=== PATIENT | male | born 1960 | race Caucasian/White ===

== ENCOUNTER 2025-01-01 21:34 | Emergency (ER) | payer MEDICARE, SELFPAY ==
--- OUTSIDE RECORDS SUMMARY | 2024-12-27 09:19 | XMS_ITS | Encounter Summary ---
Author Organization [employer] [facility] Address [address] [place] [address] Care Team Providers Care Sizing Sprayer Name Role Phone Dereck Lu MD Primary Care Provider [phone] Reason for Visit * Auth/Cert (Routine) Specialty Diagnoses / Procedures Referred By Chirag t Referred To Contact Perioperative Diagnoses Rotator cuff tear arthropathy of right shoulder Procedures MN ARTHROPLASTY GLENOHUMERAL JOINT TOTAL SHOULDER MN ARTHROPLASTY GLENOHUMRL JT HEMIARTHROPLASTY SHOULDER ARTHROPLASTY TOTAL REPLACEMENT Daniel Bryant III, MD [address] [place] [address] Phone: tel: fax: [facility] Operating Room [address] [place] [address] Phone: tel: fax: Referral ID Status Reason Start Date Expiration Date Visits Re quested Visits Authorized [id number] 1 1 Encounter Details Date Type Department Care Team (Latest Contact Info) Description 12/27/2024 9:19 AM CDT - 12/29/2024 10:32 AM CDT Hospital Encounter [facility] Inpatient [address] 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 Gender Identity Male 01/31/2024 2:24 PM CDT Sexual Orientation Straight 01/31/2024 2: 24 PM CDT documented as of this encounter Last Filed Vital Signs Vital Sign Reading Time Taken Comments Blood Pressure 116/61 12/29/2024 10:23 AM CDT Pulse 77 12/29/2024 10:23 AM CDT Temperature 36.8 C (98.2 F) 12/29/2024 10:23 AM CDT Respiratory Rate 18 12/29/2024 10:23 AM CDT Oxygen Saturation 94% 12/29/2024 10:23 AM CDT Inhaled Oxygen Concentration - - Weight 75.3 kg (166 lb) 12/27/2024 9:29 AM CDT Height 172.7 cm (5' 8 ) 12/27/2024 9:29 AM CDT Body Mass Index 25.24 12/27/2024 9:29 AM CDT documented in this encounter Discharge Summaries * Frederick Allison, MYLES - 12/29/2024 7:15 AM CDT Images from the original note were not included. ORTHOPEDIC DISCHARGE SUMMARY DATE: 12/29/2024 PATIENT: Nicholas Granados/64 y.o./male : 1960 ADMISSION DATE: 12/27/2024 DISCHARGE DATE: PHYSICIAN: Daniel Bryant MD PRE-OP DX: Right shoulder cuff tear arthropathy, bilateral amputee lower extremities FINAL DX: Same as preoperative diagnosis PROCEDURE PERFORMED: Procedure(s) and Anesthesia Type: * SHOULDER ARTHROPLASTY TOTAL REPLACEMENT - General by Dr. Bryant [facility] COU[facility]SE: The patient tolerated the above procedure well without complications and was admitted to [facility] in [place], [place]. SCD's and ASA were used for DVT prophylaxis. The post-operative hospital course was uncomplicated. The wound dressing remained clean, dry, and intact. Patient was neurovascularly intact in the affected extremity. By POD 2, the patient was in stable condition, vital signs were stable, and pain was controlled. The patient was discharged to in assisted living facility dependent on nursing care. DISCHARGE INSTRUCTIONS: SURGICAL INCISION: You have absorbable sutures closing the surgical wound. Keep incision covered with your surgical dressing until your follow up visit. There are no harvey or sutures that need to be removed. When we remove the dressing at your post operative visit, you will see white tape (Steri-Strips) over your incision. These Steri-Strips will fall off on their own between 2 weeks to 6 weeksafter surgery. -You may shower using the shower sling after 3 days with your post operative dressing still intact as it is waterproof, until that time the patient should utilize sponge baths. Do not allow water to hit the shoulder directly and avoid washing the shoulder. Let us know if the dressing leaks, traps water, or you notice any drainage trapped under the dressing. We recommend that you purchase a cloth simple sling at a drug store or supermarket and take your arm out of the shoulder immobilizer while showering and place it into the simple cloth sling in the shower. The simple cloth sling can then get wet and air dry after the shower. Please go right back into your DRY shoulder immobilizer after the shower. Please avoid submerging the surgical incision in standing bodies of water for a period of at least 6 weeks. This entails no baths, hot tubs, or swimming pools. You must wear the shoulder immobilizer / for 6 weeks. You may come out of the shoulder immobilizer for getting dressed and doing therapy exercises. You should sleep in your shoulder immobilizer. Unless otherwise instructed, youshould remain in the shoulder immobilizer until discussed with Dr. Bryant' Team. You may notice some swelling and bruising on their arm and this may extend to fingers. This is common and will go awayafter several weeks. After dismissal, the incision should be monitored at least once daily for signs/symptoms of possible wound infection. These include; increased redness, warmth, pain, tenderness, swelling, or drainagefrom the incision and temperatures greater than 102 F. If any of these occur, the patient should imm ediately contact Dr. Bryant' office, a local emergency room, or his/her local primary care physician. TRAVEL: Dr. Bryant recommends no driving until 6 weeks after surgery. NARCOTIC PAIN MEDICATIONS: The patient may require narcotic pain medication (hydroxycodone or oxycodone) for several days after dismissal from the hospital. These medications may cause symptoms such as drowsiness, confusion, nausea, and constipation. The patient is encouraged to not use these medications any longer than necessary, as they may be addictive if used over an extended time period. While taking these medications we recommend a stool softener (such as Colace) to help prevent constipation. In addition, the patient is advised not to operate any motorized vehicles while taking narcoticpain medications. ACTIVITY RESTRICTIONS: You should follow instructions as directed in the hospital. Continue passiverange of motion exercises for six weeks. You may remove and discontinue using the sling at 6 weeks.You can begin activities of daily living at 6 weeks, brush your teeth, personal hygiene etc. You may not lift more than 10 pounds with shoulder for the first 6 months after surgery. ANTIBIOTICS: When possible, it is recommended to avoid elective dental procedures, such as orthognathic surgery, orthodontics, or implant placement for the first six months following total joint surgery. This recommendation also includes endoscopy and colonoscopy procedures. Antibiotic prophylaxis is not recommended after one year following Total Shoulder surgery. Dental Antibiotic Options: 1. Cephalexin or Amoxicillin- 2 grams orally 1 hour prior to the procedure. 2. If allergic to PCN / Cephalosporins, Clindamycin- 600 mg orally, Azithromycin or Clarithromycin-500 mg orally. GENERAL QUESTIONS: If the patient has any general questions or concerns please call during regular weekday working hours (8 am to 5 pm). For emergencies at night or on weekends the patient may contact the anytime number at . FOLLOW-UP: An appointment will be made for you in 2 weeks after the surgery with Dr. Bryant' Team in clinic. If you have questions regarding this appointment or have not received an appointment, please contact Dr. Bryant' office. Please be aware that medications, including narcotics, will not be refilled on weekends or after 5 pm on week. If you need a medication refill, please contact our office during normal business hours Thursday through Thursday. DISCHARGE MEDICATIONS: Medication List START taking these medications oxyCODONE 5 mg tablet Commonly known as: ROXICODONE Take 1 Tablet (5 mg) by mouth every 4 hours as needed for Pain or Pain, Break- Through (For break through pain). Max Daily Amount: 30 mg Signed by: Dr. Reba Bryant Quantity: 20 Tablet Refills: 0 sennosides-docusate sodium 8.6-50 mg tablet Commonly known as: SENNA-S Take 1 Tablet by mouth 2 times daily. Take only when taking narcotics Signed by: Dr. Reba Bryant Quantity: 30 Tablet Refills: 2 CHANGE how you take these medications * aspirin 81 mg Tablet, Delayed Release (E.C.) Commonly known as: ECOTRIN EC What changed: Another medication with the same name was added. Make sure you understand how and when to take each. Take 1 Tablet (81 mg) by mouth daily. Signed by: Dr. Sabrina Greco Quantity: 30 Tablet Refills: 3 * aspirin 81 mg Tablet, Delayed Release (E.C.) Commonly known as: Aspirin EC What changed: You were already taking a medication with the same name, and this prescription was added. Make sure you understand how and when to take each. Take 1 Tablet (81 mg) by mouth daily for 28 days. Take for 28 days for blood clot prevention. Signed by: Dr. Reba Bryant Quantity: 28 Tablet Refills: 0 morphine 30 mg Controlled Release tablet Commonly known as: MS CONTIN What changed: Another medication with the same name was removed. Continue taking this medication, and follow the directions you see here. Take 30 mg by mouth daily. Refills: 0 * naloxone 4 mg/spray Harbert, Non-Aerosol Commonly known as: NARCAN What changed: Another medication with the same name was added. Make sure you understand how and when to take each. Administer 1 Harbert (4 mg) in one nostril (alternate nostril with each dose) one time as needed for Respiration (slowed with opioid use). Push plunger to administer. Call 911. May repeat dose, every 2-3 minutes, if the person does not wake up or breathing is not improved. Signed by: Nurse Practitioner Cecilia Carranza Quantity: 1 Each Refills: 1 * naloxone 4 mg/spray Harbert, Non-Aerosol Commonly known as: NARCAN What changed: You were already taking a medication with the same name, and this prescription was added. Make sure you understand how and when to take each. FOR EMERGENCY USE ONLY: Call 911. Administer 1 actuation in 1 nostril. Repeat every 2 to 3 minutes if no or minimal response Signed by: Dr. Reba Bryant Quantity: 2 Each Refills: 0 Indications of Use: Call 911. Administer 1 actuation in 1 nostril. Repeat every 2 to 3 minutes if no or minimal response * !!Potential duplicate medications found. Review medication list carefully. CONTINUE taking these medications atorvastatin 40 mg tablet Commonly known as: LIPITOR Take 1 Tablet (40 mg) by mouth daily at bedtime. Signed by: Nurse Practitioner Colleen Otto Quantity: 100 Tablet Refills: 3 cetirizine 10 mg tablet Commonly known as: ZyrTEC Take 1 Tablet (10 mg) by mouth daily at bedtime. Signed by: Dr. Arnold Lu Quantity: 90 Tablet Refills: 1 EPINEPHrine 0.3 mg/0.3 mL Auto-Injector Commonly known as: EPIPEN Inject 0.3 mL (0.3 mg) by intramuscular injection 1 time daily as needed for Anaphylaxis. Signed by: Dr. Arnold Lu Quantity: 1 Each Refills: 1 FLUoxetine 20 mg capsule Commonly known as: PROzac Take 1 Capsule (20 mg) by mouth daily. Signed by: Nurse Practitioner Colleen Otto Quantity: 90 Capsule Refills: 1 nitroglycerin 0.4 mg Tablet, Sublingual Commonly known as: NITROSTAT Place 1 Tablet (0.4 mg) under tongue every 5 minutes as needed for Chest Pain. Signed by: Nurse Practitioner Kaylin Gregg Quantity: 25 Tablet Refills: 3 STOP taking these medications HYDROcodone-acetaminophen 5-325 mg tablet Commonly known as: NORCO hydrOXYzine HCL 50 mg tablet Commonly known as: ATARAX morphine 30 mg Extended Release 24 hour capsule Commonly known as: AVINza You also have another medication with the same name that you need to continue taking as instructed. Where to Get Your Medications These medications were sent to [address] [address] Hours: Thursday - Thursday: 8:30 am - 5 pm (Closed for Lunch 1:30 pm - 2 pm) aspirin 81 mg Tablet, Delayed Release (E.C.) naloxone 4 mg/spray Harbert, Non-Aerosol oxyCODONE 5 mg tablet sennosides-docusate sodium 8.6-50 mg tablet Cosigned by Daniel Bryant III, MD at 12/29/2024 7:53 AM CDT documented in this encounter Discharge Instructions * Discharge Instructions* Frederick Allison FNP - 12/26/2024 4:02 PM CDT SURGICAL INCISION: You have absorbable sutures closing the surgical wound. There is a clear dressing over the incision that will stay on for approximately 2 to 6 weeks. Do not peel off this clear dressing. If the edges of the dressing started to peel up you can trim them with some scissors, but leave the rest of the dressing in place. There are no harvey or sutures that need to be removed. This dressing will come off on its own over time approximately 2 to 6 weeks. -You may shower using the shower sling after 3 days with your post operative dressing still intact as it is waterproof, until that time the patient should utilize sponge baths. Do not allow water to hit the shoulder directly and avoid washing the shoulder. Let us know if the dressing leaks, traps water, or you notice any drainage trapped under the dressing. We recommend that you purchase a cloth simple sling at a drug store or supermarket and take your arm out of the shoulder immobilizer while showering and place it into the simple cloth sling in the shower. The simple cloth sling can then get wet and air dry after the shower. Please go right back into your DRY shoulder immobilizer after the shower. Please avoid submerging the surgical incision in standing bodies of water for a period of at least 6 weeks. This entails no baths, hot tubs, or swimming pools. You must wear the shoulder immobilizer 15/12 for 6 weeks. You may come out of the shoulder immobilizer for getting dressed and doing therapy exercises. You should sleep in your shoulder immobilizer. Unless otherwise instructed, youshould remain in the shoulder immobilizer until discussed with Dr. Bryant' Team. You may notice some swelling and bruising on their arm and this may extend to fingers. This is common and will go awayafter several weeks. After dismissal, the incision should be monitored at least once daily for signs/symptoms of possible wound infection. These include; increased redness, warmth, pain, tenderness, swelling, or drainagefrom the incision and temperatures greater than 102 F. If any of these occur, the patient should imm ediately contact Dr. Bryant' office, a local emergency room, or his/her local primary care physician. TRAVEL: Dr. Bryant recommends no driving until 6 weeks after surgery. NARCOTIC PAIN MEDICATIONS: The patient may require narcotic pain medication (hydroxycodone or oxycodone) for several days after dismissal from the hospital. These medications may cause symptoms such as drowsiness, confusion, nausea, and constipation. The patient is encouraged to not use these medications any longer than necessary, as they may be addictive if used over an extended time period. While taking these medications we recommend a stool softener (such as Colace) to help prevent constipation. In addition, the patient is advised not to operate any motorized vehicles while taking narcoticpain medications. ACTIVITY RESTRICTIONS: You should follow instructions as directed in the hospital. Continue passiverange of motion exercises for six weeks. You may remove and discontinue using the sling at 6 weeks.You can begin activities of daily living at 6 weeks, brush your teeth, personal hygiene etc. You may not lift more than 10 pounds with shoulder for the first 6 months after surgery. ANTIBIOTICS: When possible, it is recommended to avoid elective dental procedures, such as orthognathic surgery, orthodontics, or implant placement for the first six months following total joint surgery. This recommendation also includes endoscopy and colonoscopy procedures. Antibiotic prophylaxis is not recommended after one year following Total Shoulder surgery. Dental Antibiotic Options: 1. Cephalexin or Amoxicillin- 2 grams orally 1 hour prior to the procedure. 2. If allergic to PCN / Cephalosporins, Clindamycin- 600 mg orally, Azithromycin or Clarithromycin-500 mg orally. GENERAL QUESTIONS: If the patient has any general questions or concerns please call during regular weekday working hours (8 am to 5 pm). For emergencies at night or on weekends the patient may contact the anytime number at . FOLLOW-UP: An appointment will be made for you in 2 weeks after the surgery with Dr. Bryant' Team in clinic. If you have questions regarding this appointment or have not received an appointment, please contact Dr. Bryant' office. Please be aware that medications, including narcotics, will not be refilled on weekends or after 5 pm on weekdays. If you need a medication refill, please contact our office during normal business hours Thursday through Thursday. * Attachments The following attachments cannot be sent through Care Everywhere. * Oxycodone ([place]) * Senna ([place]) * Ondansetron ([place]) * Opioids: Safe Use ([place]) * How and When to Give Naloxone: Video ([place]) documented in this encounter Medications at Time of Discharge oxyCODONE-acetami nophen (Percocet) 5-325 mg tabletIndications :S/P shoulder replacement, right Take 1 Tablet by mouth every 4 hours as needed for Pain, Severe. Max Daily Amount: 6 Tablets 30 Tablet 12/29/2024 naloxone (NARCAN) 4 mg/spray Harbert, Non-AerosolIndica tions:Call 911. Administer 1 actuation in 1 nostril. Repeat every 2 to 3 minutes if no or minimal response Administer 1 Harbert (4 mg) in left nostril one time as needed for Other (See Comment) (FOR EMERGENCY USE ONLY: Call 911. Administer 1 actuation in 1 nostril. Repeat every 2 to 3 minutes if no or minimal response). FOR EMERGENCY USE ONLY: Call 911. Administer 1 actuation in 1 nostril. Repeat every 2 to 3 minutes if no or minimal response 1 Each 12/28/2024 sennosides-docusa te sodium (SENNA-S) 8.6-50 mg tablet Take 1 Tablet by mouth 2 times daily. Take only when taking narcotics 30 Tablet 2 12/28/2024 aspirin (Aspirin EC) 81 mg Tablet, Delayed Release (E.C.) Take 1 Tablet (81 mg) by mouth daily for 28 days. Take for 28 days for blood clot prevention. 28 Tablet 12/28/2024 01/26/20 25 ondansetron (ZOFRAN ODT) 4 mg Tablet, Rapid Dissolve Take 1 Tablet (4 mg) by mouth every 6 hours as needed for Nausea/Emesis. Dissolve tablet on top of tongue, then swallow with saliva. 15 Tablet 1 12/28/2024 morphine (MS CONTIN) 30 mg Controlled Release tablet Take 30 mg by mouth daily. 12/07/2024 cetirizine (ZyrTEC) 10 mg tabletIndications :Environmental allergies Take 1 Tablet (10 mg) by mouth daily at bedtime. 90 Tablet 1 12/12/2024 EPINEPHrine (EPIPEN) 0.3 mg/0.3 mL Auto-InjectorIndi cations:History of anaphylaxis Inject 0.3 mL (0.3 mg) by intramuscular injection 1 time daily as needed for Anaphylaxis. 1 Each 1 12/12/2024 naloxone (NARCAN) 4 mg/spray Harbert, Non-Aerosol Administer 1 Harbert (4 mg) in one nostril (alternate nostril with each dose) one time as needed for Respiration (slowed with opioid use). Push plunger to administer. Call 911. May repeat dose, every 2-3 minutes, if the person does not wake up or breathing is not improved. 1 Each 1 07/28/2024 FLUoxetine (PROzac) 20 mg capsule Take 1 Capsule (20 mg) by mouth daily. 90 Capsule 1 07/05/2024 atorvastatin (LIPITOR) 40 mg tabletIndications :Benign hypertension Take 1 Tablet (40 mg) by mouth daily at bedtime. 100 Tablet 3 07/05/2024 nitroglycerin (NITROSTAT) 0.4 mg Tablet, Sublingual Place 1 Tablet (0.4 mg) under tongue every 5 minutes as needed for Chest Pain. 25 Tablet 3 12/04/2021 aspirin (ECOTRIN EC) 81 mg Tablet, Delayed Release (E.C.) Take 1 Tablet (81 mg) by mouth daily. 30 Tablet 3 10/19/2021 documented as of this encounter Progress Notes * Frederick Allison, MYLES - 12/29/2024 7:17 AM CDT Subjective Pain 5/10. Denies chest pain, shortness of breath, fever, chills, nausea, vomiting. Voiding independently. Tolerating p.o. well. Patient doing well postoperatively from their Right Reverse Total Shoulder Arthroplasty. Objective VITAL SIGNS Vitals: 12/28/24 1650 12/28/24 1939 12/29/24 0029 12/29/24 0537 BP: (!) 157/86 (!) 184/85 (!) 158/74 (!) 150/76 BP Location: Left arm Left arm Left arm Left arm Patient Position (BP): Sitting Supine Supine Supine Pulse: 73 71 62 66 Resp: 18 18 18 18 Temp: 97.8 ??F (36.6 ??C) 97.5 ??F (36.4 ??C) 99.7 ??F (37.6 ??C) 98.1 ??F (36.7 ??C) TempSrc: Temporal Temporal Temporal Temporal SpO2: 97% 100% 97% 94% Weight: Height: PHYSICAL EXAM General: Resting in bed. Answers questions appropriately. Musculoskeletal: Operative extremity with shoulder immobilizer in place. Surgical dressings clean, dry, and intact without strikethrough. No palpable hematoma present. Intact median, radial and ulnarmotor function. Sensation intact in radial, median, and ulnar nerve distributions. Palpable radial pulse. Fingers warm and well-perfused. DIAGNOSTICS Lab Results Component Value Date/Time WBC 9.6 12/20/2024 10:50 AM HGB 15.5 12/20/2024 10:50 AM HCT 45.9 12/20/2024 10:50 AM MCV 88.4 12/20/2024 10:50 AM PLT 279 12/20/2024 10:50 AM Lab Results Component Value Date/Time NA 139 12/20/2024 10:50 AM K 4.1 12/20/2024 10:50 AM CL 107 12/20/2024 10:50 AM CO2 20 (L) 12/20/2024 10:50 AM CA 9.3 12/20/2024 10:50 AM BUN 9 12/20/2024 10:50 AM CREAT 0.91 12/20/2024 10:50 AM GLUCOSE 95 12/20/2024 10:50 AM ANIONGAP 12 12/20/2024 10:50 AM BCRATIO SEE NOTE: 07/05/2024 12:00 AM IMPRESSION/REPORT/PLAN #1 Status post Right Reverse Total Shoulder Arthroplasty POD # 2 Comorbidities Present on Admission Patient Active Problem List Diagnosis Code Benign hypertension I10 Status post above-knee amputation (CMS/HCC) Z89.619 Status post below-knee amputation (CMS/HCC) Z89.519 Tear of rotator cuff M75.100 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.0 Former smoker Z87.891 Engages in vaping Z72.89 Chronic right shoulder pain M25.511, G89.29 Dependence on wheelchair Z99.3 Family history of coronary artery disease Z82.49 Pure hypercholesterolemia E78.00 History of OH (myocardial infarction) I25.2 Primary insomnia F51.01 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 Patient doing well postoperatively from their Right Reverse Total Shoulder Arthroplasty. Prineo dressing clean dry and intact and neurovascular exam is fully intact today. Pain is doing better today and he has no more nausea complaints. Other than that he is overall doing well and has no acute concerns or complaints today. Activity: NWB operative extremity. Shoulder ROM exercises per protocol. Pain: multimodal regimen including cold compress, acetaminophen and pain medication q4 prn VTE Prophylaxis: asa 81 mg qd x 4 weeks, recommend early ambulation and SCD's Cultures: None Antibiotics: perioperative course of IV antibiotics completed Diet: DIET GENERAL Effective Now Bowel Regimen: Sennakot S Imaging: postop X-rays obtained and reviewed which demonstrate a well positioned right total shoulder arthroplasty Consults: Physical therapy Anticipated Disposition: Pending adequate pain control and physical therapy consult the patient will discharge to SNF. Cosigned by Daniel Bryant III, MD at 12/29/2024 7:52 AM CDT * Tram Mendoza - 12/28/2024 2:48 PM CDT 12/28/24 1400 Discharge Plan Plan [facility]charge To [facility] Care Facility Name [facility] Post-Acute Ins Auth Information Level of Care SNF Submission Type Home & Community Care Transitions ([facility]) Insurance Type Medicare [facility] Date Auth Requested 12/28/24 Time Auth Requested 1420 Date of Initiation 12/28/24 Time of Initiation 1430 Escalation N Date of Initial Detemination 12/28/24 Time of Initial Detemination 1448 Initial determination Approved Pending Insurance Auth#/Ref# [id number] Ins Auth Approval # [id number] Avoidable Days N Comments/Barriers approved 12/28-12/30 * Debra Morton, Physical Therapist - 12/28/2024 12:08 PM CDT [facility] - Therapy Services Acute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 deltopectoral approach was performed. The cephalic vein was preserved medially. Deep retractors were placed. The subacromial and subdeltoid space was freed up and exposed with the use of a Darrach retractor, and a Herman deltoid retractor was placed. The clavipectoral fascia was released just lateral to the conjoint tendon and this was protected throughout the case. The proximal aspect of the long head of the biceps tendon was present in the groove and manipulated to gain access to the glenohumeral joint through the rotator interval. The bursa was elevated off the anterior aspect of the shoulder and the subscapularis remnant was identified. It was then released through a tenotomy 1 cm medial to the bicipital groove. The subscapularis was tagged at its superior and inferior margins. Capsule was then released off the inferior aspect of the humeral head until the humeral head could be dislocated. The supraspinatus and infraspinatus were torn and retracted. A meek was used to create a starting hole in the top of the humeral head. The intramedullary guide was placed through this hole. The intramedullary guide was left in the canal, and the cutting guide was applied. The humeral head was cut in 135 degrees of inclination and 30 degrees of retroversion. This was done in line with the anatomic neck. Osteophytes were removed. The cutting guide were removed. The lumbee humeral head outline was used to place a centered bicortical pin through the humeral cut surface. A sizer was used to choose the appropriate humeral inlay component size. The appropriate reamer was used to ream the metaphysis and then an awl was placed into the humeral shaft. The planer was used to ensure the cut surface was flush. The compacter trial was placed and achieved axial and rotational stability. Attention was turned to the glenoid. A posterior glenoid retractor was placed, followed by an anterior glenoid retractor. Care was taken to avoid the axillary nerve with retractor placement. The labrum and biceps tendon were excised. Great care was taken to ensure the inferior aspect of the glenoidwas well identified. The glenoid was prepared to accept the baseplate with appropriate tilt according to the pre operative plan. The baseplate was secured with with excellent purchase and then peripheral screws. The real glenosphere was impacted into position. Attention was then turned back to the humerus. Trialing was carried out with the trial polyethyleneto reach appropriate soft tissue tension and stability. The real humeral stem was impacted in 30 degrees of retroversion and a good press fit was obtained. The real polyethylene was impacted onto thestem. The joint was reduced and excellent stability and impingement free range of motion was confirm ed. The subscapularis was not able to be reattached. A tug test on the axillary nerve was performedto confirm continuity of the nerve after the final implants were reduced into place. The wound was again irrigated with saline as well as dilute hydrogen peroxide solution. Hemostasis was achieved. Vancomycin powder was applied. The deltopectoral interval was closed using #1 stratafix. The skin edges were opposed with interrupted 3-0 Polysorbs and then it was closed with running 2-0 stratafix deep and running 4-0 stratafix superficially. Prineo dressing was applied. The patient was placed in a shoulder sling with an abduction pillow and was transferred to the PACU. POSTOPERATIVE PLAN DVT PROPHYLAXIS: Aspirin 81mg daily POSTOPERATIVE REHABILITATION: Sling with pendulums only for 6 weeks post- operative. Begin formal physical therapy at 6 weeks post-operative for ROM if needed. No strengthening. FOLLOW-UP: We will plan on seeing the patient back in approximately 2 weeks for wound evaluation. documented in this encounter Miscellaneous Notes * Care Plan - Wicho Kwon RN - 12/29/2024 9:52 AM CDT Nursing Discharge Readiness Assessment Discharge Plan/Support: Patient has a safe discharge plan for transition to [facility][1] with family/friend support. Patient has transportation plans for safe travel [facility] following discharge. Urinary: Patient is voiding spontaneously. Void volumes are adequate for discharge. Dressing: The patient's dressing is clean/dry/intact. Dressing type: Prineo. Does patient have a Prevena?no Pain: Patient's pain is currently well controlled with PO meds. Patient last rated their pain 5/10. Preferred Pharmacy: [facility] Ambulation: . Patient is wheelchair bound and is transferring to wheelchair with minimal assistance. Walker: Does the patient need a two-wheeled a walker for use at home? no Nausea/Vomiting: Patient is not currently experiencing nausea/vomiting. Any other barriers to safe discharge: N/A going to [facility] Nicholas Granados will be discharged via wheelchair to Rehab. Nicholas Granados is accompanied by Family member and will be transported via private vehicle. Lines removed Yes. Hospital equipment removed Yes. Discharge instructions and new medication teaching reviewed and copy provided to patient. Prescriptions given Faxed. Home medications returned to patient/family Yes. Patient belongings and valuables given to patient/family Yes. Medical supplies sent with patient: Slingshot shoulder immobilizer. Ice pack X4 with sleeve. All questions answered and patient/family verbalized understanding. Shift Summary Pain management interventions were performed, but pain levels remained constant. Safety checks were conducted, and education on recliner safety was provided. Skin check showed no redness, and wound dressing was intact and dry. Discharge planning was finalized with arrangements for transfer to a half-way facility. Musculoskeletal function was assessed, and independence in ADLs was encouraged. Verbalizes/displays acceptable comfort level or baseline comfort level: Pain in the right shoulder remained constant at a rating of 5 throughout the shift, despite administration of oxyCODONE and ketorolac. Infection Risk/Actual: Infection prevention, control, or resolution by discharge: No redness was present during the skin check, and the dressing on the wound was intact, dry, and showed no drainage. Safety/Fall: Absence of fall, injury, harm during hospitalization: Safety checks were completed, and recliner safety education was provided. Identify discharge needs upon admission and through discharge: Discharge planning was completed with arrangements for transfer to [facility][1] on 12/29/24. Achieve optimal musculoskeletal function by discharge or maintain baseline function: Mobility was assessed as Level 2 - Seated Mobility, with musculoskeletal dysfunction noted. [place] in ADLs was promoted. * Care Plan - Lali Crisostomo RN - 12/29/2024 8:51 AM CDT Assessment Counselor Discharge Planning Spoke with Mar[facility] to confirm they will still accept patient to [facility][1] in [place] today. Family will transport patient to facility. They are aware he needs to be there by noon. Plan & ph# for report relayed to bedside nurse: [phone]. Medications have been sent to facility pharmacy & discharge paperwork has been faxed to facility as well. Lali Crisostomo RN Nurse Navigator [facility] * Care Plan - Taryn Lemus, RN - 12/29/2024 7:17 AM CDT Assessment Counselor Discharge Planning 716: Auth: Esther Das Team received ins auth approved for [facility]. Patient's or daughter will provide WC van transportation this morning, as discussed yesterday.Patient is WC bound, uses a power chair with WC van that he normally drives. Facility is requesting patient arrive by noon today. Medications escribed to SNF pharmacy. Report #[id number] Expected Discharge Date Dec 28, 2024 Plan Discharge To: [facility] (12/28/24 1400) Referrals Status: Facility Referrals - Accepted and Selected Destination - Admitted Since 12/27/2024 Service Provider Services Address Phone Fax Patient Preferred [facility] [address] [place] [phone] -- Follow-up on Referrals Sent: Yes (12/28/24 1000) Transportation Plan Follow Up Appointments Scheduled Taryn Lemus RN * Care Plan - Nova Ta RN - 12/29/2024 5:49 AM CDT Nursing Discharge Readiness Assessment Discharge Plan/Support: Patient has a safe discharge plan for transition to home with family/friend support. [facility] Urinary: Patient is voiding spontaneously. Void volumes are adequate for discharge. Dressing: The patient's dressing is clean/dry/intact. Dressing type: Prineo. Does patient have a Prevena?no Pain: Patient's pain is currently poorly controlled with PO meds. Patient last rated their pain 5/10. [place] [facility] [place]: . Patient is currently not ambulatory - Bi lat LLE amputee. Walker: Does the patient need a two-wheeled a walker for use at home? no Patient has own motorized wheelchair. Nausea/Vomiting: Patient is not currently experiencing nausea/vomiting. Any other barriers to safe discharge: Pain Control- Patient finds it impossible to not move his right arm. This results in uncontrolledpain. Hide And Skin Processing Worker SELVIN Conner added Dilaudid 0.3 IV Breakthru q 4 hours to medications. SHERRY requests that Dr Bryant team to review pain medications. * Care Plan - Taryn Lemus RN - 12/28/2024 10:16 AM CDT Assessment Counselor Discharge Planning Expected Discharge Date Dec 28, 2024 Plan Discharge To: [facility] ([facility]) (12/28/24 1000) 1016: Awaiting therapy recommendations. Will proceed with ins auth once therapy completed. Pending recommendations, may provide transportation using their power WC accessible van. NN will continue to follow for dc need. 1217: DA 124 Code: [id number] 1335: Therapy updates sent. Marium, Adm Coord with [place], states she needs to confirm acceptance with her supervisor particleboard. She states patient will have a $200/day copay at day 21 Medicare stay at SNF. She will speak to patient and about plan for after first 20 days at [facility]. 1412: Ins auth request submitted to Esther Auth Team Authorization Request for completion: Accepting Facility: [facility] Accepting Physician: Dr Benjie Tyson Physician Admit Coord:Marium Is pt returning to facility? no Is pt on SNF bed? no Is pt on LTC bed? no Does patient have an intellectual disability that could delay learning? no Anticipated DC date: 12/28 Ready for DC now? yes Skilled need: PT and OT If IV what antibiotic, frequency and stop date: ICD 10 Codes: [id number] Living Setting HEEL SEAT FLAP STAPLER: Living arrangements - the patient lives with their family. Mobility HEEL SEAT FLAP STAPLER: dep PT/OT Recommend: SNF Community Amb? no Current Ambulation: 0ft. WC bound Device/Assist: Assistive Device: Wheelchair Sit to Stand: dep Goal: Provide a safe discharge plan and seamless transition from the hospital to the next level of care. Referrals Status: Facility Referrals - Considering Follow-up on Referrals Sent: Yes (12/28/24 1000) PTransportation Plan Follow Up Appointments Scheduled Taryn Lemus RN * Care Plan - Betina Norton RN - 12/28/2024 4:52 AM CDT Shift Summary ceFAZolin was administered during the shift. Pain was managed with oxyCODONE, leading to relief and a relaxed state. Safety measures were reinforced with fall risk interventions. Peripheral neurovascular function was maintained with consistent assessments. Overall, the patient remained stable with effective pain management and safety precautions. Verbalizes/displays acceptable comfort level or baseline comfort level: Pain was initially denied but later reported, with oxyCODONE administered for relief, resulting in verbalized relief and a return to a content/relaxed state. Safety/Fall: Absence of fall, injury, harm during hospitalization: Safety checks were completed, and high fall risk interventions were implemented, including the use of a gait belt and wheelchair during mobilization. Achieve optimal peripheral neurovascular function by discharge or maintain baseline function: Peripheral neurovascular assessments remained consistent, with no changes noted in capillary refill timesor sensation in the right upper extremity. * Care Plan - Brianne Hackett RCP - 12/27/2024 5:23 PM CDT Respiratory Patient Care Assessment S- Patient resting quietly, no shortness of breath. Luiza Granados is a 64 y.o. male admitted for Rotator cuff tear arthropathy of right shoulder [M75.101, M12.811] on 12/27/2024 9:19 AM. Social History Tobacco Use Smoking status: Former Current packs/day: 0.00 Average packs/day: 0.8 packs/day for 22.4 years (16.8 ttl pk-yrs) Types: Cigarettes Start date: 1979 Quit date: 10/17/2001 Years since quittin.2 Smokeless tobacco: Never Vaping Use Vaping status: Every Day Start date: 05/25/2001 Substances: Nicotine, Flavoring Devices: Disposable Substance Use Topics Alcohol use: Never Drug use: Never Prior to Admission medications Medication Sig Start Date End Date Taking? Authorizing Provider naloxone (NARCAN) 4 mg/spray Harbert, Non-Aerosol FOR EMERGENCY USE ONLY: Call 911. Administer 1 actuation in 1 nostril. Repeat every 2 to 3 minutes if no or minimal response 12/27/24 Yes Daniel Bryant III, MD sennosides-docusate sodium (SENNA-S) 8.6-50 mg tablet Take 1 Tablet by mouth 2 times daily. Take only when taking narcotics 12/27/24 Yes Daniel Bryant III, MD aspirin (Aspirin EC) 81 mg Tablet, Delayed Release (E.C.) Take 1 Tablet (81 mg) by mouth daily for 28 days. Take for 28 days for blood clot prevention. 12/27/24 01/24/25 Yes Daniel Bryant III, MD oxyCODONE (ROXICODONE) 5 mg tablet Take 1 Tablet (5 mg) by mouth every 4 hours as needed for Pain or Pain, Break-Through (For break through pain). Max Daily Amount: 30 mg 12/27/24 Yes Daniel Bryant III, MD morphine (MS CONTIN) 30 mg Controlled Release tablet Take 30 mg by mouth daily. 12/07/24 Yes Provider, Connie cetirizine (ZyrTEC) 10 mg tablet Take 1 Tablet (10 mg) by mouth daily at bedtime. 12/12/24 Yes Dereck Lu MD HYDROcodone-acetaminophen (NORCO) 5-325 mg tablet Take 1 Tablet by mouth daily. Max Daily Amount: 1Tablet 12/02/24 01/01/25 Yes Rafaela Castellano, EPINEPHrine (EPIPEN) 0.3 mg/0.3 mL Auto-Injector Inject 0.3 mL (0.3 mg) by intramuscular injection 1 time daily as needed for Anaphylaxis. 12/12/24 Dereck Lu MD morphine (AVINza) 30 mg Extended Release 24 hour capsule Take 1 Capsule (30 mg) by mouth daily. MaxDaily Amount: 30 mg 12/02/24 01/01/25 Rafaela Castellano DO morphine (AVINza) 30 mg Extended Release 24 hour capsule Take 1 Capsule (30 mg) by mouth daily. MaxDaily Amount: 30 mg 01/01/25 01/31/25 Rafaela Castellano DO HYDROcodone-acetaminophen (NORCO) 5-325 mg tablet Take 1 Tablet by mouth daily. Max Daily Amount: 1Tablet 01/01/25 01/31/25 Rafaela Castellano DO naloxone (NARCAN) 4 mg/spray Harbert, Non-Aerosol Administer 1 Harbert (4 mg) in one nostril (alternatenostril with each dose) one time as needed for Respiration (slowed with opioid use). Push plunger to administer. Call 911. May repeat dose, every 2-3 minutes, if the person does not wake up or breathing is not improved. 07/28/24 Suzette Carranza FNP hydrOXYzine HCL (ATARAX) 50 mg tablet Take 1 Tablet (50 mg) by mouth daily at bedtime. 07/05/24 Angie Otto FNP FLUoxetine (PROzac) 20 mg capsule Take 1 Capsule (20 mg) by mouth daily. 07/05/24 Angie Otto FNP atorvastatin (LIPITOR) 40 mg tablet Take 1 Tablet (40 mg) by mouth daily at bedtime. 07/05/24 Angie Otto FNP nitroglycerin (NITROSTAT) 0.4 mg Tablet, Sublingual Place 1 Tablet (0.4 mg) under tongue every 5 minutes as needed for Chest Pain. 12/04/21 Cinthya Gregg, JOHANNE aspirin (ECOTRIN EC) 81 mg Tablet, Delayed Release (E.C.) Take 1 Tablet (81 mg) by mouth daily. 10/19/21 Tevin Greco DO Lab Results Component Value Date/Time WBC 9.6 12/20/2024 10:50 AM HGB 15.5 12/20/2024 10:50 AM HCT 45.9 12/20/2024 10:50 AM PLT 279 12/20/2024 10:50 AM MCV 88.4 12/20/2024 10:50 AM Lab Results Component Value Date/Time NA 139 12/20/2024 10:50 AM K 4.1 12/20/2024 10:50 AM CL 107 12/20/2024 10:50 AM CO2 20 (L) 12/20/2024 10:50 AM CA 9.3 12/20/2024 10:50 AM BUN 9 12/20/2024 10:50 AM CREAT 0.91 12/20/2024 10:50 AM GLUCOSE 95 12/20/2024 10:50 AM ANIONGAP 12 12/20/2024 10:50 AM BCRATIO SEE NOTE: 07/05/2024 12:00 AM No results found for: CPK , CKMB , TROPONIN , TROPONIINT , TROPINTR Breath sounds reveal clear throughout. Last chest x-ray reveals No current CXR Latest spirometry reveals: Unable to perform at this time A- MIKE (patient does not wear a home cpap). No pulmonary history or home regimen. P- Patient educated on purpose and technique of therapy. Based on above, no therapy is indicated. Encourage deep breathing and cough. Will reassess patient status as needed. Brianne Hackett RCP documented in this encounter Plan of Treatment Upcoming Encounters Date Type Department Care Team (Late st Contact Info) Description 01/09/2025 11:15 AM CDT Office Visit [facility] [address] [place] [id number] Frederick Allison FNP [address] [place] [phone] 01/26/2025 9:20 AM CDT Office Visit [facility] [address] [place] [address] Suzette Carranza FNP [address] [place] [address] 01/26/2025 2:00 PM CDT Office Visit [facility] [address] [facility] [facility] [address] [place] [address] Tim Aden MD [address] [facility] [address] [place] [phone] 03/06/2025 4:00 PM CDT Office Visit [facility] [address] [phone] Angie Otto, [facility] [address] [address] 05/02/2025 1:50 PM MOLDER OFFBEARER Office Visit [facility] [address] [place] [address] Angeline Perez PA [address] [place] [address] documented as of this encounter Procedures Procedure Name Priority Date/Time Associated Diagnosis Comments TELEMETRY REPORT 01/02/2025 9:57 AM CDT RT ASSESS AND TREAT Routine 12/27/2024 4 :11 PM CDT POC GLUCOSE Routine 12/27/2024 3:13 PM CDT XR SHOULDER 1 VW RIGHT Routine 12/27/2024 1:36 PM CDT POC GLUCOSE Routine 12/27/2024 1:34 PM CDT MN ARTHROPLASTY GLENOHUMERAL JOINT TOTAL SHOULDER 12/27/2024 11:55 AM CDT Rotator cuff tear arthropathy of right shoulder documented in this encounter Results * TELEMETRY REPORT (01/02/2025 9:57 AM CDT) us Provider Scanning ECG ORDERABLES Final Result * (ABNORMAL) POC GLUCOSE (12/27/2024 3:13 PM CDT) GLUCOSE POC 100(H) 74 - 99 mg/dL 12/27/2024 3:13 PM CDT [facility] SPECIMEN SOURCE, GLUCOSE POC Whole Blood 12/27/2024 3:13 PM CDT [facility] Blood, whole 12/27/2024 3:13 PM CDT 12/27/2024 3:21 PM CDT us Daniel Bryant III, MD POINT OF CARE TESTING Marlena l Result [facility] CLIA #[id number] [address] [place] [address] * XR SHOULDER 1 VW RIGHT (12/27/2024 1:36 PM CDT) Anatomical Region Laterality Modality Upper Extremity Computed Radiogr aphy 12/27/2024 1:36 PM CDT Impressions 12/28/2024 11:22 AM CDT IMPRESSION: See below. Exam: XR SHOULDER 1 VW RIGHT Date/Time of Exam: 12/27/2024 1:36 PM Reason For Exam: Other - Please see comments, Comment: post-operative. Diagnosis: S/P shoulder replacement, right. Findings: There has been placement of a shoulder joint arthroplasty which appears normally aligned on this single view. No hardware complication identified. Narrative Procedure Note Emil Bliss MD - 12/28/2024 IMPRESSION: See below. Exam: XR SHOULDER 1 VW RIGHT Date/Time of Exam: 12/27/2024 1:36 PM Reason For Exam: Other - Please see comments, Comment: post-operative. Diagnosis: S/P shoulder replacement, right. Findings: There has been placement of a shoulder joint arthroplasty which appears normally aligned on this single view. No hardware complication identified. us Frederick Allison SPACE CONTROL SUPERVISOR DIAGNOSTIC IMAGING ORD ERABLES Final Result * (ABNORMAL) POC GLUCOSE (12/27/2024 1:34 PM CDT) GLUCOSE POC 101(H) 74 - 99 mg/dL 12/27/2024 1:34 PM CDT [facility] SPECIMEN SOURCE, GLUCOSE POC Whole Blood 12/27/2024 1:34 PM CDT [facility] Blood, whole 12/27/2024 1:34 PM CDT 12/27/2024 1:42 PM CDT us Daniel Bryant III, MD POINT OF CARE TESTING Marlena he Result [facility] CLIA #[id number] [address] [place] [address] documented in this encounter Visit Diagnoses Diagnosis S/P shoulder replacement, right- Primary Status post reverse total shoulder replacement, right- Primary documented in this encounter Administered Medications Inactive Administered Medications - up to 3 most recent administrations Medication Order MAR Action Action Date Dose Rate Site acetaminophen (TYLENOL) tablet 650 mg 650 mg, Oral, EVERY 6 HOURS, First dose on Thu12/27/24 at 1400, Until Discontinued, Routine, Post-op - Floor Given 12/29/2024 5:36 AM CDT 650 mg Given 12/28/2024 11:59 PM CDT 650 mg Given 12/28/2024 6:17 PM CDT 650 mg aspirin (ECOTRIN EC) tablet 81 mg 81 mg, Oral, DAILY, First dose on Thu12/28/24 at 0900, Until Discontinued, Routine, Previous Med: aspirin (ECOTRIN EC) 81 mg Tablet, Delayed Release (E.C.) - Orig Sig - Take 1 Tablet (81 mg) by mouth daily. Given 12/29/2024 8:55 AM CDT 81 mg Given 12/28/2024 8:28 AM CDT 81 mg aspirin (ECOTRIN EC) tablet 81 mg 81 mg, Oral, ONE TIME ONLY, 1 dose, On Thu12/27/24 at 1400, Routine, Post-op - Floor Given 12/27/2024 2:32 PM CDT 81 mg atorvastatin (LIPITOR) tablet 40 mg 40 mg, Oral, DAILY AT BEDTIME, First dose on Thu12/27/24 at 2100, Until Discontinued, Routine, Previous Med: atorvastatin (LIPITOR) 40 mg tablet - Orig Sig - Take 1 Tablet (40 mg) by mouth daily at bedtime. Given 12/28/2024 8:38 PM CDT 40 mg Given 12/27/2024 9:30 PM CDT 40 mg bisacodyL (DULCOLAX) rectal suppository 10 mg 10 mg, Rectal, DAILY PRN, Starting on Thu12/27/24 at 1358, Until Thu12/29/24 at 1232, Constipation, Routine, Post-op - Floor ceFAZolin (ANCEF,KEFZOL) 2,000 mg in sodium chloride 0.9% 50 mL IVPB (MBP) 2,000 mg, IV, POST-PROCEDURE Q 8 HOURS, 2 doses, First dose on Thu12/27/24 at 2000, Last dose on Thu12/28/24 at 0400, Routine, Post-op - Floor, Antibiotic Indication: Surgical prophylaxis New Bag 12/28/2024 3:52 AM CDT 2,000 mg 118 mL/hr New Bag 12/27/2024 7:49 PM CDT 2,000 mg 118 mL/hr diphenhydrAMINE (BENADRYL) injection 12.5 mg 12.5 mg, IV, EVERY 6 HOURS PRN, Starting on Thu12/27/24 at 1358, Until Thu12/29/24 at 1232, Itching, Routine, Post-op - Floor Given 12/29/2024 12:44 AM CDT 12. 5 mg Given 12/28/2024 4:28 PM CDT 12.5 mg Given 12/28/2024 8:09 AM CDT 12.5 mg FLUoxetine (PROzac) capsule 20 mg 20 mg, Oral, DAILY, First dose on Thu12/27/24 at 1400, Until Discontinued, Routine, Previous Med: FLUoxetine (PROzac) 20 mg capsule - Orig Sig - Take 1 Capsule (20 mg) by mouth daily. Given 12/27/2024 9:30 PM CDT 20 mg FLUoxetine (PROzac) capsule 20 mg 20 mg, Oral, DAILY AT BEDTIME, First dose (after last modification) on Thu12/28/24 at 2100, Until Discontinued, Routine, Previous Med: FLUoxetine (PROzac) 20 mg capsule - Orig Sig - Take 1 Capsule (20 mg) by mouth daily. Given 12/28/2024 8:45 PM CDT 20 mg HYDROmorphone (PF) (DILAUDID) injection 0.3 mg 0.3 mg, IV, EVERY 4 HOURS PRN, Starting on Thu12/27/24 at 1358, Until Thu12/29/24 at 1232, Pain (See admin instructions), Routine, Post-op - Floor Given 12/29/2024 4:24 AM CDT 0.3 mg Given 12/28/2024 11:58 PM CDT 0.3 mg Given 12/28/2024 7:58 PM CDT 0.3 mg HYDROmorphone (PF) (DILAUDID) injection 0.3 mg 0.3 mg, IV, EVERY 4 HOURS PRN, Starting on Thu12/29/24 at 0018, Until Thu12/29/24 at 1232, Pain, Break-Through, Routine Given 12/29/2024 2:07 AM CDT 0.3 mg ketorolac (TORADOL) injection 10 mg 10 mg, IV, ONE TIME ONLY, 1 dose, On Thu12/29/24 at 0715, Routine Given 12/29/2024 7:28 AM CDT 10 mg ketorolac (TORADOL) injection 15 mg 15 mg, IV, EVERY 6 HOURS, 3 doses, First dose on Thu12/27/24 at 1400, Last dose on Thu12/28/24 at 0000, Routine, Post-op - Floor Given 12/28/2024 12:00 AM CDT 15 mg Given 12/27/2024 5:39 PM CDT 15 mg lactated ringers infusion IV, at 40 mL/hr, CONTINUOUS, Starting on Thu12/27/24 at 0945, Until Thu12/28/24 at 0944, Routine, Pre-op New Bag 12/27/2024 1:00 PM CDT Continue from Pre-Op 12/27/2024 11:12 AM CDT 40 mL/hr New Bag 12/27/2024 10:00 AM CDT 40 mL/hr midazolam (VERSED) injection 2 mg 2 mg, IV, PRE-PROCEDURE ONCE, 1 dose, Starting on Thu12/27/24 at 0930, Until Thu12/27/24 at 1106, Routine, Pre-op Given 12/27/2024 11:06 AM CDT 2 mg morphine (MS CONTIN) SR tablet 30 mg 30 mg, Oral, DAILY, First dose on Thu12/28/24 at 0900, Until Discontinued, Routine, Previous Med: morphine (MS CONTIN) 30 mg Controlled Release tablet - Orig Sig - Take 30 mg by mouth daily. , Opioid REMS limits the patient population that can receive long-acting opioid medications. Is the patient suffering from a painful condition expected to last greater than 4 weeks? Yes Given 12/29/2024 8:55 AM CDT 3 0 mg Given 12/28/2024 8:29 AM CDT 30 mg naloxone (NARCAN) 0.4 mg/mL injection 0.1-0.4 mg 0.1-0.4 mg, IV, SEE ADMIN INSTRUCTIONS, Starting on Thu12/27/24 at 0949, Until Thu12/29/24 at 1232, Routine, PACU ondansetron (ZOFRAN) 4 mg/2 mL injection 4 mg 4 mg, IV, EVERY 6 HOURS PRN, Starting on Thu12/27/24 at 1358, Until Jyoti 12/29/24 at 1232, Nausea/Emesis, Routine, Post-op - Floor Given 12/28/2024 6:30 AM CDT 4 mg oxyCODONE (ROXICODONE) tablet 10 mg 10 mg, Oral, EVERY 4 HOURS PRN, Starting on Thu12/28/24 at 1013, Until Thu12/29/24 at 1232, Pain (See admin instructions), Routine, Post-op - Floor Given 12/29/2024 5:39 AM CDT 10 mg Given 12/29/2024 12:40 AM CDT 10 mg Given 12/28/2024 8:38 PM CDT 10 mg oxyCODONE (ROXICODONE) tablet 5 mg 5 mg, Oral, EVERY 4 HOURS PRN, Starting on Thu12/27/24 at 1358, Until Thu12/28/24 at 1014, Pain (See admin instructions), Routine, Post-op - Floor Given 12/28/2024 8:31 AM CDT 5 mg Given 12/28/2024 12:16 AM CDT 5 mg Given 12/27/2024 2:32 PM CDT 5 mg oxyCODONE (ROXICODONE) tablet 5 mg 5 mg, Oral, EVERY 4 HOURS PRN, Starting on Thu12/27/24 at 1358, Until Jyoti 12/29/24 at 1232, Pain (See admin instructions), Routine, Post-op - Floor Given 12/29/2024 7:29 AM CDT 5 mg Given 12/29/2024 3:13 AM CDT 5 mg Given 12/28/2024 6:54 PM CDT 5 mg polyethylene glycol (MIRALAX) packet 17 Gram 17 Gram, Oral, DAILY PRN, Starting on Thu12/27/24 at 1358, Until Thu12/29/24 at 1232, Constipation, Routine, Post-op - Floor povidone-iodine (BETADINE) 5 % topical solution Both Nostrils, ONE TIME ONLY, 1 dose, On Thu12/27/24 at 0945, Routine, Pre-op Given 12/27/2024 10:00 AM CDT ROPivacaine (PF) (NAROPIN) 5 mg/mL (0.5 %) injection 20 mL 20 mL, See Admin Instructions, PRE-PROCEDURE ONCE, 1 dose, Starting on Thu12/27/24 at 0930, Until Thu12/27/24 at 1108, Routine, Pre-opIndications:Interscalen e block Given 12/27/2024 11:08 AM CDT 20 mL Shou lder, Right sennosides-docusate sodium (SENNA-S) 8.6-50 mg per tablet 1 Tablet 1 Tablet, Oral, TWO TIMES DAILY, First dose on Thu12/27/24 at 1400, Until Discontinued, Routine, Post-op - Floor Given 12/29/2024 8:55 AM CDT 1 Tablet Given 12/28/2024 8:38 PM CDT 1 Tablet Given 12/28/2024 8:28 AM CDT 1 Tablet sodium chloride 0.9 % infusion IV, at 80 mL/hr, CONTINUOUS, Starting on Thu12/27/24 at 1400, Until Jyoti 12/29/24 at 1232, Routine, Post-op - Floor New Bag 12/27/2024 5:39 PM CDT 80 mL/hr sodium chloride flush injection 10 mL 10 mL, IV, SEE ADMIN INSTRUCTIONS, Starting on Thu12/27/24 at 0930, Until Thu12/29/24 at 1232, Routine, Pre-op Given 12/28/2024 6:30 AM CDT 10 mL Given 12/28/2024 6:23 AM CDT 10 mL documented in this encounter Active and Recently Administered Medications Times are shown in CDT. Scheduled Medication Order 12/27/2024 12/28/2024 12/29/2024 acetaminophen (TYLENOL) tablet 650 mg 650 mg, Oral, EVERY 6 HOURS, First dose on Thu12/27/24 at 1400, Until Discontinued, Routine, Post-op - Floor 1432 (Given - Provider: Rebecca Smith, RA)1739 (Given - Provider: Rebecca Smith, RA) 0000 (Given - Provider: Betina Norton, RA)0622 (Refused - Provider: Betina Norton, RN)1207 (Given - Provider: Archana Munson RN)1817 (Given - Provider: Archana Munson, RA)2359 (Given - Provider: Nova Ta, RA) 0536 (Given - Provider: Nova Ta, RA) aspirin (ECOTRIN EC) tablet 81 mg 81 mg, Oral, DAILY, First dose on Thu12/28/24 at 0900, Until Discontinued, Routine, Previous Med: aspirin (ECOTRIN EC) 81 mg Tablet, Delayed Release (E.C.) - Orig Sig - Take 1 Tablet (81 mg) by mouth daily. 0828 (Given - Provider: Archana Munson RN) 0855 (Given - Provider: Karlene Leija RN) aspirin (ECOTRIN EC) tablet 81 mg (COMPLETED) 81 mg, Oral, ONE TIME ONLY, 1 dose, On Thu12/27/24 at 1400, Routine, Post-op - Floor 1432 (Given - Provider: Rebecca Smith, RA) atorvastatin (LIPITOR) tablet 40 mg 40 mg, Oral, DAILY AT BEDTIME, First dose on Thu12/27/24 at 2100, Until Discontinued, Routine, Previous Med: atorvastatin (LIPITOR) 40 mg tablet - Orig Sig - Take 1 Tablet (40 mg) by mouth daily at bedtime. 2129 (Given - Provider: Betina Norton RN) 2037 (Given - Provider: Nova Ta, RA) ceFAZolin (ANCEF,KEFZOL) 2,000 mg in sodium chloride 0.9% 50 mL IVPB (MBP) (COMPLETED) 2,000 mg, IV, POST-PROCEDURE Q 8 HOURS, 2 doses, First dose on Thu12/27/24 at 2000, Last dose on Thu12/28/24 at 0400, Routine, Post-op - Floor, Antibiotic Indication: Surgical prophylaxis 194 (New Bag - Provider: Betina Norton RN)2018 (Stopped - Provider: Betina Norton RN) 351 (New Bag - Provider: Betina Norton RN)421 (Stopped - Provider: Betina Norton RN) ceFAZolin in sterile water (ANCEF) 2 gram/20 mL IV Syringe (PREMIX) 2,000 mg (COMPLETED) 2,000 mg, IV, PRE-PROCEDURE ONCE, 1 dose, Starting on Thu12/27/24 at 0930, Until Thu12/27/24 at 1146, Routine, Pre-op, Antibiotic Indication: Surgical prophylaxis 1138 (Given - Provider: Sybil Faustin CRNA)1146 (Stopped - Provider: Sybil Faustin CRNA) FLUoxetine (PROzac) capsule 20 mg (CANCELED) 20 mg, Oral, DAILY, First dose on Thu12/27/24 at 1400, Until Discontinued, Routine, Previous Med: FLUoxetine (PROzac) 20 mg capsule - Orig Sig - Take 1 Capsule (20 mg) by mouth daily. 1400 (Canceled Entry - Provider: Rebecca Smith RN)2129 (Given - Provider: Betina Norton RN) 09 (Canceled Entry - Provider: Archana Munson RN) FLUoxetine (PROzac) capsule 20 mg 20 mg, Oral, DAILY AT BEDTIME, First dose (after last modification) on Thu12/28/24 at 2100, Until Discontinued, Routine, Previous Med: FLUoxetine (PROzac) 20 mg capsule - Orig Sig - Take 1 Capsule (20 mg) by mouth daily. 2044 (Given - Provider: Nova Ta, RA) ketorolac (TORADOL) injection 10 mg (COMPLETED) 10 mg, IV, ONE TIME ONLY, 1 dose, On Jyoti 8/7/25 at 0715, Routine 0728 (Given - Provider: Wicho Kwon, RA) ketorolac (TORADOL) injection 15 mg () 15 mg, IV, EVERY 6 HOURS, 3 doses, First dose on Thu12/27/24 at 1400, Last dose on Thu12/28/24 at 0000, Routine, Post-op - Floor 1400 (Not Given - Provider: Rebecca Smith, RA - Reason: Patient condition)1739 (Given - Provider: Rebecca Smith, RA) 0000 (Given - Provider: Betina Norton RN) midazolam (VERSED) injection 2 mg (COMPLETED) 2 mg, IV, PRE-PROCEDURE ONCE, 1 dose, Starting on Thu12/27/24 at 0930, Until Thu12/27/24 at 1106, Routine, Pre-op 1106 (Given - Provider: Ro Nagel RN) morphine (MS CONTIN) SR tablet 30 mg 30 mg, Oral, DAILY, First dose on Thu12/28/24 at 0900, Until Discontinued, Routine, Previous Med: morphine (MS CONTIN) 30 mg Controlled Release tablet - Orig Sig - Take 30 mg by mouth daily. , Opioid REMS limits the patient population that can receive long-acting opioid medications. Is the patient suffering from a painful condition expected to last greater than 4 weeks? Yes 0829 (Given - Provider: Archana Munson, RA) 0855 (Given - Provider: Karlene Leija RN) naloxone (NARCAN) 0.4 mg/mL injection 0.1-0.4 mg 0.1-0.4 mg, IV, SEE ADMIN INSTRUCTIONS, Starting on Thu12/27/24 at 1358, Until Jyoti 12/29/24 at 1232, Routine, Post-op - Floor naloxone (NARCAN) 0.4 mg/mL injection 0.1-0.4 mg 0.1-0.4 mg, IV, SEE ADMIN INSTRUCTIONS, Starting on Thu12/27/24 at 0949, Until Jyoti 12/29/24 at 1232, Routine, PACU povidone-iodine (BETADINE) 5 % topical solution (COMPLETED) Both Nostrils, ONE TIME ONLY, 1 dose, On Thu12/27/24 at 0945, Routine, Pre-op 1000 (Given - Provider: Gretchen Sampson RN) ROPivacaine (PF) (NAROPIN) 5 mg/mL (0.5 %) injection 20 mL (COMPLETED) 20 mL, See Admin Instructions, PRE-PROCEDURE ONCE, 1 dose, Starting on Thu12/27/24 at 0930, Until Thu12/27/24 at 1108, Routine, Pre-op 1108 (Given - Provider: Ro Nagel RN - Comment: right interscalene nerve block) sennosides-docusate sodium (SENNA-S) 8.6-50 mg per tablet 1 Tablet 1 Tablet, Oral, TWO TIMES DAILY, First dose on Thu12/27/24 at 1400, Until Discontinued, Routine, Post-op - Floor 1400 (Not Given - Provider: Rebecca Smith RN - Reason: Patient condition)0 (Refused - Provider: Betina Norton RN) 0828 (Given - Provider: Archana Munson RN)2037 (Given - Provider: Nova Ta RN) 0855 (Given - Provider: Karlene Leija RN) sodium chloride flush injection 10 mL 10 mL, IV, SEE ADMIN INSTRUCTIONS, Starting on Thu12/27/24 at 0930, Until Jyoti 12/29/24 at 1232, Routine, Pre-op 0623 (Given - Provider: Betina Norton, RA)0630 (Given - Provider: Betina Norton, RN) tranexamic acid (CYKLOKAPRON) 100 mg/mL solution 1,000 mg (COMPLETED) 1,000 mg, IV, INTRA-PROCEDURE ONCE, 1 dose, Starting on Thu12/27/24 at 0930, Until Thu12/27/24 at 1248, Routine, Intra-op 1156 (Given - Provider: Sybil Faustin CRNA - Comment: Pushed over 10 minutes.)1248 (Given - Provider: Sybil Faustin CRNA - Comment: Pushed over 10 minutes.) Continuous Medication Order 12/27/2024 12/28/2024 12/29/2024 lactated ringers infusion () IV, at 40 mL/hr, CONTINUOUS, Starting on Thu12/27/24 at 0945, Until Thu12/28/24 at 0944, Routine, Pre-op 1000 (New Bag - Provider: Gretchen Sampson RN)1112 (Continue from Pre-Op - Provider: Sybil Faustin CRNA)1259 (Paused - Provider: Sybil Faustin CRNA - Comment: Switch to gravity)1300 (New Bag - Provider: Sybil Faustin CRNA)1739 (Stopped - Provider: Rebecca Smith, RA) sodium chloride 0.9 % infusion IV, at 80 mL/hr, CONTINUOUS, Starting on Thu12/27/24 at 1400, Until Jyoti 12/29/24 at 1232, Routine, Post-op - Floor 1739 (New Bag - Provider: Rebecca Smith, RA) 0623 (Stopped - Provider: Betina Norton RN) PRN Medication Order 12/27/2024 12/28/2024 12/29/2024 bisacodyL (DULCOLAX) rectal suppository 10 mg(Linked Group 1) 10 mg, Rectal, DAILY PRN, Starting on e 12/27/24 at 1358, Until Jyoti 12/29/24 at 1232, Constipation, Routine, Post-op - Floor diphenhydrAMINE (BENADRYL) injection 12.5 mg 12.5 mg, IV, EVERY 6 HOURS PRN, Starting on e 12/27/24 at 1358, Until Jyoti 12/29/24 at 1232, Itching, Routine, Post-op - Floor 0809 (Given - Provider: Archana Munson, RA)1628 (Given - Provider: Archana Munson RN) 0044 (Given - Provider: Nova Ta RN) hydrogen peroxide 3% topical solution (CANCELED) INTRA-PROCEDURE PRN, Starting on e 12/27/24 at 1205, Until 12/27/24 at 1307, Routine, Intra-op 1205 (Given - Provider: Daniel Bryant III, MD - Comment: mixed in 500ml of saline) HYDROmorphone (PF) (DILAUDID) injection 0.3 mg 0.3 mg, IV, EVERY 4 HOURS PRN, Starting on 12/27/24 at 1358, Until Jyoti 12/29/24 at 1232, Pain (See admin instructions), Routine, Post-op - Floor 1957 (Given - Provider: Nova Ta RN)2358 (Given - Provider: Nova Ta, RN) 0424 (Given - Provider: Nova Ta RN) HYDROmorphone (PF) (DILAUDID) injection 0.3 mg 0.3 mg, IV, EVERY 4 HOURS PRN, Starting on Jyoti 12/29/24 at 0018, Until Jyoti 12/29/24 at 1232, Pain, Break-Through, Routine 0207 (Given - Provider: Nova Ta RN) lidocaine-EPINEPHrine (PF) (XYLOCAINE-EPI) 1 %-1:200,000 injection (CANCELED) INTRA-PROCEDURE PRN, Starting on Thu12/27/24 at 1204, Until Thu12/27/24 at 1307, Routine, Intra-op 1204 (Given - Provider: Daniel Bryant III, MD) ondansetron (ZOFRAN) 4 mg/2 mL injection 4 mg 4 mg, IV, EVERY 6 HOURS PRN, Starting on Thu12/27/24 at 1358, Until Jyoti 12/29/24 at 1232, Nausea/Emesis, Routine, Post-op - Floor ondansetron (ZOFRAN) 4 mg/2 mL injection 4 mg 4 mg, IV, EVERY 6 HOURS PRN, Starting on Thu12/27/24 at 1358, Until Jyoti 12/29/24 at 1232, Nausea/Emesis, Routine, Post-op - Floor 0630 (Given - Provider: Betina Norton RN) oxyCODONE (ROXICODONE) tablet 10 mg 10 mg, Oral, EVERY 4 HOURS PRN, Starting on Thu12/28/24 at 1013, Until Jyoti 12/29/24 at 1232, Pain (See admin instructions), Routine, Post-op - Floor 1207 (Given - Provider: Archana Munson, RA)1630 (Given - Provider: Archana Munson, RN)2038 (Given - Provider: Nova Ta, RN)2352 [facility] Nova Ta RN[facility] 0040 (Given - Provider: Nova Ta RN)0539 (Given - Provider: Nova Bridges, RN) oxyCODONE (ROXICODONE) tablet 5 mg (CANCELED) 5 mg, Oral, EVERY 4 HOURS PRN, Starting on Thu12/27/24 at 1358, Until Thu12/28/24 at 1014, Pain (See admin instructions), Routine, Post-op - Floor 1432 (Given - Provider: Rebecca Smith, RA) 0016 (Given - Provider: Betina Norton, RA)0831 (Given - Provider: Archana Munson, RA) oxyCODONE (ROXICODONE) tablet 5 mg 5 mg, Oral, EVERY 4 HOURS PRN, Starting on Thu12/27/24 at 1358, Until Jyoti 12/29/24 at 1232, Pain (See admin instructions), Routine, Post-op - Floor 0420 (Given - Provider: Betina Norton RN)0944 (Given - Provider: Archana Munson RN)1854 (Given - Provider: Archana Munson, RA) 0313 (Given - Provider: Nova Ta RN)0729 (Given - Provider: Wicho Kwon RN) polyethylene glycol (MIRALAX) packet 17 Gram(Linked Group 1) 17 Gram, Oral, DAILY PRN, Starting on Thu12/27/24 at 1358, Until Jyoti 12/29/24 at 1232, Constipation, Routine, Post-op - Floor vancomycin (VANCOCIN) vial (CANCELED) INTRA-PROCEDURE PRN, Starting on Thu12/27/24 at 1205, Until Thu12/27/24 at 1307, Routine, Intra-op 1205 (Given - Provider: Daniel Bryant III, MD - Comment: sprinkled into op site at the end of the case) Linked Groups Order Group 1: polyethylene glycol (MIRALAX) packet 17 GramJump to med 17 Gram, Oral, DAILY PRN, Starting on Thu12/27/24 at 1358, Until Jyoti 12/29/24 at 1232, Constipation, Routine, Post-op - Floor Or bisacodyL (DULCOLAX) rectal suppository 10 mgJump to med 10 mg, Rectal, DAILY PRN, Starting on Thu12/27/24 at 1358, Until Jyoti 8/7/25 at 1232, Constipation, Routine, Post-op - Floor documented in this encounter Additional Health Concerns Assessment Noted Time PHQ-9 Depression Total Score: 1 09/03/19 25 2:03 PM CDT documented as of this encounter Care Teams Sizing Sprayer Relationship Specialty Start Date End Date Dereck Lu MD [address] [id number] PCP - General Family Practice 06/02/23 documented as of this encounter
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
--- OUTSIDE RECORDS SUMMARY | 2024-12-27 11:55 | XMS_ITS | Encounter Summary ---
Author Organization [employer] Address [address] [place] [address] Care Team Providers Care Float Nurse Name Role Phone Dereck Lu MD Primary Care Provider [phone] Reason for Visit * Auth/Cert (Routine) Specialty Diagnoses / Procedures Referred By Chirag t Referred To Contact Perioperative Diagnoses Rotator cuff tear arthropathy of right shoulder Procedures KY ARTHROPLASTY GLENOHUMERAL JOINT TOTAL SHOULDER KY ARTHROPLASTY GLENOHUMRL JT HEMIARTHROPLASTY SHOULDER ARTHROPLASTY TOTAL REPLACEMENT Daniel Bryant III, MD [address] [place] [address] Phone: tel: fax: [facility] Operating Room [address] [place] [address] Phone: tel: fax: Referral ID Status Reason Start Date Expiration Date Visits Re quested Visits Authorized [id number] 1 1 Encounter Details Date Type Department Care Team (Late st Contact Info) Description 12/27/2024 11:55 AM CDT - 12/27/2024 2:00 PM CDT Surgery [facility] Operating Room [address] [place] [address] Daniel Bryant III, MD [address] [place] [address] SHOULDER ARTHROPLASTY TOTAL REPLACEMENT Surgery Details Date/Time Status Location OR Service Patient Class Case Class Case Type Trauma Case? 12/27/2024 11:55 AM Posted [facility] OR ORTH OR Orthopedics Surgical OP/Extended Care Elective No Panel 1 Procedure LRB Anes Op Region Wound Class Comments SHOULDER ARTHROPLASTY TOTAL REPLACEMENT Right General Shoulder Clean-I Surgeon Surgeon Role Service Panel Daniel Bryant III, MD Primary Orthopedics 1 documented in this encounter Social History Tobacco Use Types Packs/Day Years Used Date Smoking Tobacco: Former Cigarettes 0.8 22.4 1 980 - 10/17/2001 Smokeless Tobacco: Never Alcohol Use Standard Drinks/Week Comments Never 0 (1 standard drink = 0.6 oz pur e alcohol) Sex and Gender Information Value Date Recorded Sex Assigned at Male 01/31/2024 2:24 PM CDT Legal Sex Male 9:52 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 Gender Identity Male 01/31/2024 2:24 PM CDT Sexual Orientation Straight 01/31/2024 2: 24 PM CDT documented as of this encounter Last Filed Vital Signs Vital Sign Reading Time Taken Comments Blood Pressure 112/66 12/27/2024 1:50 PM CDT Pulse 52 12/27/2024 1:50 PM CDT Temperature 36.5 C (97.7 F) 12/27/2024 1:50 PM CDT Respiratory Rate 14 12/27/2024 1:50 PM CDT Oxygen Saturation 91% 12/27/2024 1:50 PM CDT Inhaled Oxygen Concentration - - Weight 75.3 kg (166 lb) 12/27/2024 9:29 AM CDT Height 172.7 cm (5' 8 ) 12/27/2024 9:29 AM CDT Body Mass Index 25.24 12/27/2024 9:29 AM CDT documented in this encounter Discharge Summaries * Frederick Allison FNP - 12/29/2024 7:15 AM CDT Images from the original note were not included. ORTHOPEDIC DISCHARGE SUMMARY DATE: 12/29/2024 PATIENT: Nicholas Zee Raimer/64 y.o./male : 1960 ADMISSION DATE: 12/27/2024 DISCHARGE DATE: PHYSICIAN: Daniel Bryant MD PRE-OP DX: Right shoulder cuff tear arthropathy, bilateral amputee lower extremities FINAL DX: Same as preoperative diagnosis PROCEDURE PERFORMED: Procedure(s) and Anesthesia Type: * SHOULDER ARTHROPLASTY TOTAL REPLACEMENT - General by Dr. Bryant [facility] COURSE: The patient tolerated the above procedure well without complications and was admitted to [facility] in [place], [place]. SCD's and ASA were used for [...] pools. You must wear the shoulder immobilizer 24/ for 6 weeks. You may come out [...] daily. Refills: 0 * naloxone 4 mg/spray Martin, Non-Aerosol Commonly known as: NARCAN What changed: Another medication with the same name was added. Make sure you understand how and when to take each. Administer 1 Martin (4 mg) in one nostril (alternate nostril with each dose) one time as needed for Respiration (slowed with opioid use). Push plunger to administer. Call 911. May repeat dose, every 2-3 minutes, if the person does not wake up or breathing is not improved. Signed by: Nurse Practitioner Cecilia Carranza Quantity: 1 Each Refills: 1 * naloxone 4 mg/spray Martin, Non-Aerosol Commonly known as: NARCAN What changed: [...] mouth daily at bedtime. Signed by: Nurse Chante Otto Quantity: 100 Tablet Refills: 3 cetirizine [...] needed for Chest Pain. Signed by: Nurse Chante Gregg Quantity: 25 Tablet Refills: 3 STOP [...] Your Medications These medications were sent to [place] [address] [address] Hours: Thursday - Thursday: 8:30 am - 5 pm (Closed for Lunch 1:30 pm - 2 pm) aspirin 81 mg Tablet, Delayed Release (E.C.) naloxone 4 mg/spray Martin, Non-Aerosol oxyCODONE 5 mg tablet sennosides-docusate sodium [...] the dressing in place. There are no havrey or sutures that need to be removed. [...] to operate any motorized vehicles while taking narcotic pain medications. ACTIVITY RESTRICTIONS: You should follow instructions [...] be sent through Care Everywhere. * Oxycodone (Bruneian) * Senna (Bruneian) * Ondansetron (Bruneian) * Opioids: Safe Use (Bruneian) * How and When to Give Naloxone: Video (Bruneian) documented in this encounter Medications at Time of Discharge oxyCODONE-acetami nophen (Percocet) 5-325 mg tabletIndications :S/P shoulder replacement, right Take 1 Tablet by mouth every 4 hours as needed for Pain, Severe. Max Daily Amount: 6 Tablets 30 Tablet 12/29/2024 naloxone (NARCAN) 4 mg/spray Martin, Non-AerosolIndica tions:Call 911. Administer 1 actuation in 1 nostril. Repeat every 2 to 3 minutes if no or minimal response Administer 1 Martin (4 mg) in left nostril one time [...] Each 1 12/12/2024 naloxone (NARCAN) 4 mg/spray Martin, Non-Aerosol Administer 1 Martin (4 mg) in one nostril (alternate nostril [...] this encounter Progress Notes * Frederick Allison, COMMERCIAL DRONE PILOT - 12/29/2024 7:17 AM CDT Subjective Pain [...] Benign hypertension I10 Status post above-knee amputation ([facility]) Z89.619 Status post below-knee amputation ([facility]) Z89.519 Tear of rotator cuff M75.100 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.0 Former smoker Z87.891 Engages in vaping Z72.89 Chronic right shoulder pain M25.511, G89.29 Dependence on wheelchair Z99.3 Family history of coronary artery disease Z82.49 Pure hypercholesterolemia E78.00 History of AK (myocardial infarction) I25.2 Primary insomnia F51.01 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 History [...] 12/28/24 1400 Discharge Plan Plan Discharge To Alf Facility Care Facility Name [facility] Post-Acute Ins Auth Information Level of Care SNF Submission Type Home & Community Care Transitions (naveal) Insurance Type Medicare UHC Date Auth Requested 12/28/24 Time Auth Requested 1420 Date of Initiation 12/28/24 Time of Initiation 1430 Escalation N Date of Initial Detemination 12/28/24 Time of Initial Detemination 1448 Initial determination Approved Pending Insurance Auth#/Ref# [id number] Ins Auth Approval # [id number] Avoidable Days N Comments/Barriers approved 12/28-12/30 * Debra Morton Physical Therapist - 12/28/2024 12:08 PM CDT [facility] - Therapy Services Acute Physical Therapy Evaluation 12/28/2024 Room: [facility] Name: Nicholas Granados Age: 64 y.o. Date of : 1960 Insurance: Payor: UNITED HEALTHCARE MEDICARE ADVANTAGE / Plan: [employer] [facility] [id number] / Product Type: HMO / Patient Class: [...] EOB Maximum assistance (patient performs 25-49% of activity)(12/28/241207) Transfers: Bed to Chair (Including sit to/from [...] starting 12/28/2024 Discharge Recommendation Anticipated discharge disposition: half-way facility (12/28/241207) Equipment needed at discharge: Slide board (12/28/241207). No new additional adaptive equipment necessary (12/28/241207) Inpatient Plan Of Care Therapy Frequency: one [...] 12/29/2024 7:52 AM CDT * Frederick Allison, COMMERCIAL DRONE PILOT - 12/28/2024 8:06 AM CDT Subjective Pain 12/01. Denies chest pain, shortness of breath, fever, chills, nausea, vomiting. Voiding independently. Tolerating p.o. well. Patient doing well postoperatively from their Right Reverse Total Shoulder Arthroplasty. Objective VITAL SIGNS Vitals: 12/27/24 1922 12/27/24 1952 12/28/24 0003 12/28/24 0421 BP: 130/74 120/60 (!) [...] Benign hypertension I10 Status post above-knee amputation ([facility]) Z89.619 Status post below-knee amputation ([facility]) Z89.519 Tear of rotator cuff M75.100 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.0 Former smoker Z87.891 Engages in vaping Z72.89 Chronic right shoulder pain M25.511, G89.29 Dependence on wheelchair Z99.3 Family history of coronary artery disease Z82.49 Pure hypercholesterolemia E78.00 History of AK (myocardial infarction) I25.2 Primary insomnia F51.01 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 Pref[facility] Pharmacy[facility] Ambulation: . Patient is W/C transfer. Has [...] last rated their pain 0/10. Preferred Pharmacy: [facility] or facility upon dc Ambulation: . Patient has not gotten up, he uses an electric w/c at home. Plan to use slider board, pt has bilateral BKA Nausea/Vomiting: Patient is not currently experiencing nausea/vomiting. documented in this encounter H&P Notes * Daniel Bryant III, MD - 12/27/2024 7:21 AM CDT Nicholas Granados [id number] 1960 CHIEF COMPLAINT Right shoulder pain HISTORY OF PRESENT ILLNESS Nicholas Granados is a 64 y.o. male who is right-hand dominant and presents for surgical intervention. There have been no interval changes since the last clinic visit. PERTINENT PAST MEDICAL & SURGICAL HISTORY, MEDICATIONS: Wheelchair dependent, history of right BKA and AKA, history of AK SOCIAL HISTORY: He is retired but wants to stay active with his activities of daily living including kayaking and cutting wood. He smokes a vape, nondiabetic, takes a daily baby aspirin. Patient Active Problem List Diagnosis Code Benign hypertension I10 Status post above-knee amputation ([facility]) Z89.619 Status post below-knee amputation ([facility]) Z89.519 Tear of rotator cuff M75.100 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.0 Former smoker Z87.891 Engages in vaping Z72.89 Chronic right shoulder pain M25.511, G89.29 Dependence on wheelchair Z99.3 Family history of coronary artery disease Z82.49 Pure hypercholesterolemia E78.00 History of AK (myocardial infarction) I25.2 Primary insomnia F51.01 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 Every effort is made to [...] Patient plans to go toa SNF facility. [facility] SNF list given with choices made 1) [facility] 2) [facility]. Patient support system at home includes Julisa. Patient has a power WC for discharge. Patient lives in a 1 level home and has ramped entry. Nurse Navigator will continue to follow and assist as needed. 12/06/24 1332: Referral sent to [facility]. Adm Brooke Coord, states she has an appt with patient and [facility] and establish a plan for admission after surgery. She will review referral and call NN with any updates. 12/07 1532: Spoke with Adm Kandy Smith with [facility]. She states she has met with patient andwife, and anticipates admission, pending surgery and therapy notes. 12/13/24 1344: Spoke with patient's by phone. She states they have changed their minds and are working with [facility] for discharge. She reports the clinic has sent patient information to facility, they are reviewing now. states she will provide WC van transportation to facility. NN will continue to follow for discharge planning and needs. Taryn Lemus, RA, MICHELE Nurse Navigator [facility] documented in this encounter OR Notes * Operative Report - Daniel Bryant III, MD - 12/27/2024 12:57 PM CDT SURGEON: Daniel Bryant MD ASSISTING: Frederick Allison APRN A addictions counselor assistant was necessary for one or more [...] removed. The cutting guide were removed. The yomb[place] shoshone humeral head outline was used to place [...] a safe discharge plan for transition to [facility] with family/friend support. Patient has transportation plans for safe travel [facility] following discharge. Urinary: Patient is voiding spontaneously. Void volumes are adequate for discharge. Dressing: The patient's dressing is clean/dry/intact. Dressing type: Prineo. Does patient have a Prevena?no Pain: Patient's pain is currently well controlled with PO meds. Patient last rated their pain 5/10. Preferred Pharmacy: [facility] Ambulation: . Patient is wheelchair bound and is transferring to wheelchair with minimal assistance. Walker: Does the patient need a two-wheeled a walker for use at home? no Nausea/Vomiting: Patient is not currently experiencing nausea/vomiting. Any other barriers to safe discharge: N/A going to [facility] Nicholas Granados will be discharged via wheelchair [...] finalized with arrangements for transfer to a nursing home facility. Musculoskeletal function was assessed, and independence [...] was completed with arrangements for transfer to [facility] on 12/29/24. Achieve optimal musculoskeletal function by discharge or maintain baseline function: Mobility was assessed as Level 2 - Seated Mobility, with musculoskeletal dysfunction noted. Honor in ADLs was promoted. * Care Plan - Lali Crisostomo RN - 12/29/2024 8:51 AM CDT Non Destructive Tester Discharge Planning Spoke with [facility] to confirm they will still accept patient to [facility] in [place] today. Family will transport patient to facility. They are aware he needs to be there by noon. Plan & ph# for report relayed to bedside nurse: [phone]. Medications have been sent to facility pharmacy & discharge paperwork has been faxed to facility as well. Lali Crisostomo, RN Nurse Navigator [facility] * Care Plan - Taryn Lemus RN - 12/29/2024 7:17 AM CDT Non Destructive Tester Discharge Planning 716: Auth: [facility] Auth Team received ins auth approved for [facility]. Patient's or daughter will provide WC van transportation this morning, as discussed yesterday.Patient is WC bound, uses a power chair with WC van that he normally drives. Facility is requesting patient arrive by noon today. Medications escribed to SNF pharmacy. Report #[phone] Expected Discharge Date Dec 28, 2024 Plan Discharge To: Alf Facility (12/28/24 1400) Referrals Status: Facility Referrals - Accepted and Selected Destination - Admitted Since 12/27/2024 Service Provider Services Address Phone Fax Patient Preferred [facility] Alf [address] [place] [phone] -- Follow-up on Referrals Sent: Yes (12/28/24 1000) Transportation Plan Follow Up Appointments Scheduled Taryn Lemus RN * Care Plan - Nova Ta RN - 12/29/2024 5:49 AM CDT Nursing Discharge Readiness Assessment Discharge Plan/Support: Patient has a safe discharge plan for transition to home with family/friend support. [facility] Urinary: Patient is voiding spontaneously. Void volumes are adequate for discharge. Dressing: The patient's dressing is clean/dry/intact. Dressing type: Prineo. Does patient have a Prevena?no Pain: Patient's pain is currently poorly controlled with PO meds. Patient last rated their pain 5/10. Preferred Pharmacy: [facility] Ambulation: . Patient is currently not ambulatory - Bi lat LLE amputee. Walker: Does the patient need a two-wheeled a walker for use at home? no Patient has own motorized wheelchair. Nausea/Vomiting: Patient is not currently experiencing nausea/vomiting. Any other barriers to safe discharge: Pain Control- Patient finds it impossible to not move his right arm. This results in uncontrolledpain. Steel Sash Erector SELVIN Conner added Dilaudid 0.3 IV Breakthru q 4 hours to medications. SHERRY requests that Dr Bryant team to review pain medications. * Care Plan - Taryn Lemus RN - 12/28/2024 10:16 AM CDT Non Destructive Tester Discharge Planning Expected Discharge Date Dec 28, 2024 Plan Discharge To: Alf Facility ([facility]) (12/28/24 1000) 1016: Awaiting therapy recommendations. Will proceed with ins auth once therapy completed. Pending recommendations, may provide transportation using their power WC accessible van. NN will continue to follow for dc need. 1217: DA 124 Code: [id number] 1335: Therapy updates sent. Marium, Adm Coord with [place], states she needs to confirm acceptance with her boarding kennel or cattery operator. She states patient will have a $200/day copay at day 21 Medicare stay at [facility]. She will speak to patient and about plan for after first 20 days at [facility]. 1412: Ins auth request submitted to Esther Das Team Authorization Request for completion: Accepting Facility: [facility] Accepting Physician: Dr Benjie Tyson Physician Admit Coord:Marium Is pt returning to facility? no Is pt on SNF bed? no Is pt on LTC bed? no Does patient have an intellectual disability that could delay learning? no Anticipated DC date: 12/28 Ready for DC now? yes Skilled need: PT and OT If IV what antibiotic, frequency and stop date: ICD 10 Codes: [id number] Living Setting TALEND ETL DEVELOPER: Living arrangements - the patient lives with their family. Mobility TALEND ETL DEVELOPER: dep PT/OT Recommend: SNF Community Amb? no [...] Taking? Authorizing Provider naloxone (NARCAN) 4 mg/spray Martin, Non-Aerosol FOR EMERGENCY USE ONLY: Call 911. [...] Daily Amount: 1Tablet 12/02/24 01/01/25 Yes Rafaela Castellano DO EPINEPHrine (EPIPEN) 0.3 mg/0.3 mL Auto-Injector Inject [...] Rafaela Castellano DO naloxone (NARCAN) 4 mg/spray Martin, Non-Aerosol Administer 1 Martin (4 mg) in one nostril (alternatenostril with [...] Tablet (81 mg) by mouth daily. 10/19/21 Angus, Tevin Charlie, DO Lab Results Component Value Date/Time WBC [...] Description 01/09/2025 11:15 AM CDT Office Visit [facility] [address] [place] [id number] Frederick Allison, MYLES [address] [place] [address] 01/26/2025 9:20 AM CDT Office Visit [facility] [address] [place] [address] Suzette Carranza, [facility] [address] [place] [address] 01/26/2025 2:00 PM CDT Office Visit [facility] [address] [facility] [address] [place] [address] Tim Aden MD [address] [place] [address] 03/06/2025 4:00 PM CDT Office Visit [facility] [address] [address] Angie Otto, [facility] [address] [address] 05/02/2025 1:50 PM MECHANICAL TECHNICAL SERVICE SPECIALIST Office Visit [facility] [address] [place] [address] Angeline Perez PA [address] [place] [address] documented as of this encounter Procedures Procedure Name Priority Date/Time Associated Diagnosis Comments TELEMETRY REPORT 01/02/2025 9:57 AM CDT RT ASSESS AND TREAT Routine 12/27/2024 4 :11 PM CDT POC GLUCOSE Routine 12/27/2024 3:13 PM CDT XR SHOULDER 1 VW RIGHT Routine 12/27/2024 1:36 PM CDT POC GLUCOSE Routine 12/27/2024 1:34 PM CDT KY ARTHROPLASTY GLENOHUMERAL JOINT TOTAL SHOULDER 12/27/2024 11:55 AM CDT Rotator cuff tear arthropathy of right shoulder documented in this encounter Results * TELEMETRY REPORT (01/02/2025 9:57 AM CDT) us Provider Scanning ECG ORDERABLES Final Result * (ABNORMAL) POC GLUCOSE (12/27/2024 3:13 PM CDT) GLUCOSE POC 100(H) 74 - 99 mg/dL 12/27/2024 3:13 PM CDT [facility] SPECIMEN SOURCE, GLUCOSE POC Whole Blood 12/27/2024 3:13 PM CDT [facility] Blood, whole 12/27/2024 3:13 PM CDT 12/27/2024 3:21 PM CDT Daniel Bryant III, MD POINT OF CARE TESTING Marlena l Result [facility] CLIA #[id number] [address] [place] [address] * XR SHOULDER 1 VW RIGHT (12/27/2024 [...] this single view. No hardware complication identified. Frederick Allison COMMERCIAL DRONE PILOT DIAGNOSTIC IMAGING ORD ERABLES Final Result * (ABNORMAL) POC GLUCOSE (12/27/2024 1:34 PM CDT) GLUCOSE POC 101(H) 74 - 99 mg/dL 12/27/2024 1:34 PM CDT [facility] SPECIMEN SOURCE, GLUCOSE POC Whole Blood 12/27/2024 1:34 PM CDT [facility] Blood, whole 12/27/2024 1:34 PM CDT 12/27/2024 1:42 PM CDT Daniel Bryant III, MD POINT OF CARE TESTING Marlena l Result [id number] [place] [address] documented in this encounter Visit Diagnoses Diagnosis S/P shoulder replacement, right- Primary 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, 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, right- [...] Given 12/28/2024 8:45 PM CDT 20 mg hydrogen peroxide 3% topical solution INTRA-PROCEDURE PRN, Starting on Thu12/27/24 at 1205, Until Thu12/27/24 at 1307, Routine, Intra-op Given 12/27/2024 12:05 PM CDT 118 mL Oper ative Site HYDROmorphone (PF) (DILAUDID) injection 0.3 mg 0.3 [...] Bag 12/27/2024 10:00 AM CDT 40 mL/hr lidocaine-EPINEPHrine (PF) (XYLOCAINE-EPI) 1 %-1:200,000 injection INTRA-PROCEDURE PRN, Starting on Thu12/27/24 at 1204, Until Thu12/27/24 at 1307, Routine, Intra-op Given 12/27/2024 12:04 PM CDT 7 mL Oper ative Site midazolam (VERSED) injection 2 mg 2 mg, [...] weeks? Yes Given 12/29/2024 8:55 AM CDT 30 mg Given 12/28/2024 8:29 AM CDT 30 mg naloxone (NARCAN) 0.4 mg/mL injection 0.1-0.4 mg 0.1-0.4 mg, IV, SEE ADMIN INSTRUCTIONS, Starting on Thu12/27/24 at 0949, Until Jyoti 12/29/24 at 1232, Routine, PACU ondansetron (ZOFRAN) 4 [...] Until Jyoti 12/29/24 at 1232, Routine, Pre-op Given 12/28/2024 6:30 AM CDT 10 mL Given 12/28/2024 6:23 AM CDT 10 mL vancomycin (VANCOCIN) vial INTRA-PROCEDURE PRN, Starting on Thu12/27/24 at 1205, Until Thu12/27/24 at 1307, Routine, Intra-op Given 12/27/2024 12:05 PM CDT 1,000 mg Oper ative Site documented in this encounter Active and Recently Administered Medications Times are shown in CDT. Scheduled Medication Order 12/27/2024 12/28/2024 12/29/2024 acetaminophen (TYLENOL) tablet 650 mg 650 mg, Oral, EVERY 6 HOURS, First dose on Thu12/27/24 at 1400, Until Discontinued, Routine, Post-op - Floor 1432 (Given - Provider: Rebecca Smith RN)1739 (Given - Provider: Rebecca Smith RN) 0000 (Given - Provider: Betina Norton RN)0622 (Refused - Provider: Betina L Ross, RN)1207 (Given - Provider: Archana Munson RN)1817 (Given - Provider: Archana Munson, RN)2359 (Given - Provider: Nova Ta RN) 0536 (Given - Provider: Nova Ta RN) aspirin (ECOTRIN EC) tablet 81 mg 81 [...] Norton RN) 2037 (Given - Provider: Nova Ta RN) ceFAZolin (ANCEF,KEFZOL) 2,000 mg in sodium chloride 0.9% 50 mL IVPB (MBP) (COMPLETED) 2,000 mg, IV, POST-PROCEDURE Q 8 HOURS, 2 doses, First dose on Thu12/27/24 at 2000, Last dose on Thu12/28/24 at 0400, Routine, Post-op - Floor, Antibiotic Indication: Surgical prophylaxis 1948 (New Bag - Provider: Betina Norton RN)2018 [...] daily. 1400 (Canceled Entry - Provider: Rebecca Smith, RA)2130 (Given - Provider: Betina Norton, RA) 0900 (Canceled Entry - Provider: Archana Munson RN) FLUoxetine (PROzac) capsule 20 mg 20 mg, Oral, DAILY AT BEDTIME, First dose (after last modification) on Thu12/28/24 at 2100, Until Discontinued, Routine, Previous Med: FLUoxetine (PROzac) 20 mg capsule - Orig Sig - Take 1 Capsule (20 mg) by mouth daily. 2044 (Given - Provider: Nova Ta RN) ketorolac (TORADOL) injection 10 mg (COMPLETED) 10 mg, IV, ONE TIME ONLY, 1 dose, On Thu12/29/24 at 0715, Routine 0728 (Given - Provider: Wicho Kwon RN) ketorolac (TORADOL) injection 15 mg () 15 mg, IV, EVERY 6 HOURS, 3 doses, First dose on Thu12/27/24 at 1400, Last dose on Thu12/28/24 at 0000, Routine, Post-op - Floor 1400 (Not Given - Provider: Rebecca Smith, RA - Reason: Patient condition)1739 (Given - Provider: Rebecca Smith, RA) 0000 (Given - Provider: Betina Norton, RA) midazolam (VERSED) injection 2 mg (COMPLETED) 2 [...] to last greater than 4 weeks? Yes 828 (Given - Provider: Archana Munson, RA) 08 (Given - Provider: Karlene Leija RN) naloxone (NARCAN) 0.4 mg/mL injection 0.1-0.4 mg 0.1-0.4 mg, IV, SEE ADMIN INSTRUCTIONS, Starting on Thu12/27/24 at 1358, Until Thu12/29/24 at 1232, Routine, Post-op - Floor naloxone (NARCAN) 0.4 mg/mL injection 0.1-0.4 mg 0.1-0.4 mg, IV, SEE ADMIN INSTRUCTIONS, Starting on Thu12/27/24 at 0949, Until Thu12/29/24 at 1232, Routine, PACU povidone-iodine (BETADINE) 5 [...] Provider: Rebecca Smith, RA - Reason: Patient condition)2129 (Refused - Provider: Betina Norton RN) 827 (Given - Provider: Archana Munson RN)2037 (Given - Provider: Nova Ta RN) 0855 (Given - Provider: Karlene Leija RN) sodium chloride flush injection 10 mL 10 mL, IV, SEE ADMIN INSTRUCTIONS, Starting on Thu12/27/24 at 0930, Until Jyoti 12/29/24 at 1232, Routine, Pre-op 0623 (Given - Provider: Betina Norton, RN)0630 (Given - Provider: Betina Norton, RA) tranexamic acid (CYKLOKAPRON) 100 mg/mL solution 1,000 [...] Smith, RA) 0623 (Stopped - Provider: Betina Norton, RA) PRN Medication Order 12/27/2024 12/28/2024 12/29/2024 bisacodyL (DULCOLAX) rectal suppository 10 mg(Linked Group 1) 10 mg, Rectal, DAILY PRN, Starting on e 12/27/24 at 1358, Until Jyoti 12/29/24 at 1232, Constipation, Routine, Post-op - Floor diphenhydrAMINE (BENADRYL) injection 12.5 mg 12.5 mg, IV, EVERY 6 HOURS PRN, Starting on 12/27/24 at 1358, Until Jyoti 12/29/24 at 1232, Itching, Routine, Post-op - Floor 0809 (Given - Provider: Archana Munson, RN)1628 (Given - Provider: Archana Munson, RN) 0044 (Given - Provider: Nova Ta, RA) hydrogen peroxide 3% topical solution (CANCELED) INTRA-PROCEDURE PRN, Starting on Thu12/27/24 at 1205, Until 12/27/24 at 1307, Routine, Intra-op 1205 (Given - Provider: Daniel Bryant III, MD - Comment: mixed in 500ml of saline) HYDROmorphone (PF) (DILAUDID) injection 0.3 mg 0.3 mg, IV, EVERY 4 HOURS PRN, Starting on e 12/27/24 at 1358, Until Jyoti 12/29/24 at 1232, Pain (See admin instructions), Routine, Post-op - Floor 1958 (Given - Provider: Nova Ta, RN)2358 (Given - Provider: Nova Ta, RN) 0424 (Given - Provider: Noav Ta, RN) HYDROmorphone (PF) (DILAUDID) injection 0.3 mg 0.3 mg, IV, EVERY 4 HOURS PRN, Starting on Jyoti 12/29/24 at 0018, Until Jyoti 12/29/24 at 1232, Pain, Break-Through, Routine 0207 (Given - Provider: Nova Ta, RA) lidocaine-EPINEPHrine (PF) (XYLOCAINE-EPI) 1 %-1:200,000 injection (CANCELED) INTRA-PROCEDURE PRN, Starting on Thu12/27/24 at 1204, Until 12/27/24 at 1307, Routine, Intra-op 1204 (Given - [...] Archana Munson, RN)2038 (Given - Provider: Nova Ta RN)2352 (Return to [facility] - Provider: Nova Ta, RA) 0040 (Given - Provider: Nova Ta, RA)0539 (Given - Provider: Nova Ta, RA) oxyCODONE (ROXICODONE) tablet 5 mg (CANCELED) 5 mg, Oral, EVERY 4 HOURS PRN, Starting on Thu12/27/24 at 1358, Until Thu12/28/24 at 1014, Pain (See admin instructions), Routine, Post-op - Floor 1432 (Given - Provider: Rebecca Smith RN) 0016 (Given - Provider: Betina Norton, RA)0831 (Given - Provider: Archana Munson, RA) oxyCODONE (ROXICODONE) tablet 5 mg 5 mg, Oral, EVERY 4 HOURS PRN, Starting on Thu12/27/24 at 1358, Until Jyoti 12/29/24 at 1232, Pain (See admin instructions), Routine, Post-op - Floor 0420 (Given - Provider: Betina Norton RN)0944 (Given - Provider: Archana Munson, RA)1854 (Given - Provider: Archana Munson, RN) 0313 (Given - Provider: Nova Ta RN)5931 (Given - Provider: Wicho Kwon RN) polyethylene glycol (MIRALAX) packet 17 Gram(Linked Group 1) 17 Gram, Oral, DAILY PRN, Starting on 12/27/24 at 1358, Until Jyoti 12/29/24 at 1232, Constipation, Routine, Post-op - Floor vancomycin (VANCOCIN) vial (CANCELED) INTRA-PROCEDURE PRN, Starting on Thu12/27/24 at 1205, Until 12/27/24 at 1307, Routine, Intra-op 1205 (Given - Provider: Daniel Bryant III, MD - Comment: sprinkled into op site at the end of the case) Linked Groups Order Group 1: polyethylene glycol (MIRALAX) packet 17 GramJump to med 17 Gram, Oral, DAILY PRN, Starting on 12/27/24 at 1358, Until Jyoti 12/29/24 at 1232, Constipation, Routine, Post-op - Floor Or bisacodyL (DULCOLAX) rectal suppository 10 mgJump to med 10 mg, Rectal, DAILY PRN, Starting on 12/27/24 at 1358, Until Jyoti 12/29/24 at 1232, Constipation, Routine, Post-op - Floor documented in this encounter Additional Health Concerns Assessment Noted Time PHQ-9 Depression Total Score: 1 09/03/19 25 2:03 PM CDT documented as of this encounter Care Teams Float Nurse Relationship Specialty Start Date End Date Dereck Lu MD [address] [address] PCP - General Family Practice 06/02/23 documented as of this encounter
[2025-01-01] VITALS (10 sets, daily range): BP systolic 120–165; BP diastolic 76–94; PULSE 67–79; RESP 9–20; TEMP 36.8; O2SAT 96–98; BMI 40.4
--- NOTE | 2025-01-01 21:50 | XRR_ITS ---
PROCEDURE INFORMATION: Exam: XR Chest Exam date and time: 01/01/2025 10:04 PM Age: 64 years old Clinical indication: Chest pressure; Prior surgery; Surgery date: 3-7 days post-operative; Surgery type: RT shoulder 12/27/2024. Coronary stents; C/O chest pain since shoulder surgery five days ago. ; Additional info: Cp TECHNIQUE: Imaging protocol: Radiologic exam of the chest. Views: 1 view. COMPARISON: No relevant prior studies available. FINDINGS: Lungs: Unremarkable. No consolidation. Pleural spaces: Unremarkable. No pleural effusion. No pneumothorax. Heart/Mediastinum: Mild tortuosity thoracic aorta. No cardiomegaly. Bones/joints: Mild left convexity lumbar scoliosis. Right shoulder replacement.. Upper abdomen: Unremarkable. XR/XR chest 1V portable [id number] IMPRESSION: No acute findings.
--- NOTE | 2025-01-01 21:51 | ED_ITS ---
HPI - Chest Pain 2 General: Chief Complaint: Chest Pain Stated Complaint: CHEST PAIN Time Seen by Provider: 01/01/25 21:37 History of Present Illness: 64-year-old man who says he has a histor y of coronary disease. He believes he had a stent placed 3 years ago or so in [place]. He does not know specifics. He also had a left total shoulder replacement 5 days ago in [place]. He is a bilateral amputee of the lower extremities. He presents with chest discomfort, that he has had on and off since waking up from anesthesia after surgery. He had a workup while in the hospital, that was negative for cardiac disease. He continues to have pain. Pain is in his epigastrium, radiates into his chest and back to some degree. He has mild shortness of breath with it. He has not had pain similar to this prior to his surgery. He says that he has been hypertensive for the last couple of days. He was placed on amlodipine last night, and has had 2 doses Related Data Previous Rx's ?Medication ?Instructions ?Recorded pantoprazole 40 mg tablet,delayed 40 mg PO DAILY #30 t abs 01/02/25 release (Protonix) sucralfate 1 gram tablet 1 g PO TID 4 weeks #84 tabs 01/02/25 Allergies Allergy/AdvReac Type Severity Reaction Status Date / Time aspirin Allergy ADR-Chest Verified 01/01/25 21:37 Pain ibuprofen Allergy ADR-Chest Verified 01/01/25 21:37 Pain Physical Exam 2 Const: COMMON NORMALS: no acute distress GENERAL APPEARANCE: cooperative; not ill appearing and not frail appearing HENMT: COMMON NORMALS: normocephalic, atraumatic and Normal external nose present HEAD & SCALP: normocephalic and atraumatic FACE & SINUS: normal facial exam and face symmetric NOSE: Normal external nose present Eye: COMMON NORMALS: Equal, round and reactive pupils present and EOMs intact bilaterally PUPIL: Yes Equal, round and reactive pupils present Neck/C-Spine: GENERAL: Yes trachea midline Chest: CHEST: Yes Symmetrical chest wall rise Resp: COMMON NORMALS: normal respiratory effort, No retractions, No use of accessory muscles and clear to auscultation bilaterally AUSCULTATION: clear to auscultation bilaterally Cardio: COMMON NORMALS: regular rate and regular rhythm RATE: regular rate RHYTHM: regular rhythm GI: COMMON NORMALS: Normal to inspection, nondistended, normoactive bowel sounds present Extremity: COMMON NORMALS: no pedal edema Neuro: SUSAN COMA SCALE: document GCS findings [place] coma scale eye opening: Spontaneous Susan coma scale verbal response: Orientated [place] coma scale motor response: Obey commands Susan coma scale total score: 15 S ENSORY EXAM: Yes extremities (intact) Psych: COMMON NORMALS: speech normal SPEECH: Yes normal speech Skin: COMMON NORMALS: no rashes or lesions noted GENERAL SKIN EXAM: no rashes or lesions noted Course 2 Vital Signs: Vital signs: Vital Signs Temperature 98.3 F 01/01/25 21:35 Pulse Rate 73 01/01/25 23:45 Respiratory Rate 11 L 01/01/25 23:45 Blood Pressure 129/80 01/01/25 23:45 Pulse Oximetry 96 01/01/25 23:45 Oxygen Delivery Me thod Room Air 01/01/25 21:35 MDM - Chest Pain Medical Decision Making Pain is resolved following GI cocktail. Morphine did not really help his pain. He states that he feels fabulous . His white blood cell count is 14.5, no left shift. Hemoglobin is 14. BMP is not remarkable. His troponin is 7. His pain has been going on for days, 1 would expect an elevation by now. His EKG is nonacute. His BNP is 47. His CTA, done because of prior surgery and D-dimer of 2.81 reveals some atelectasis, and postsurgical air. No pulmonary emboli. With improvement after GI cocktail, he will be treated for esophageal spasm/esophagitis. PPI plus Carafate. Return for any worsening symptoms. Outpatient follow-up. Lab Data 01/01/25 21:55 01/01/25 21:55 Radiology Impressions Chest X-Ray 01/01/25 21:50 IMPRESSION: No acute findings. Chest CTA 01/01/25 22:32 IMPRESSION: 1. No demonstrable pulmonary emboli. 2. Artifact. 3. Increased parenchymal density posteriorly in the upper and lower lobes may represent dependent atelectasis or edema. 4. Collections of air right anterior superior chest wall and some air in fluid seen anterior superior to right shoulder prosthesis. These are felt to be related the recent surgery 5. Coronary artery calcification Laboratory Results WBC 14.47 10^3/uL (3.29-11.43) H 01/01/25 21:55 RBC 4.71 10^6/uL (3.85-5.65) 01/01/25 21:55 Hgb 13.90 g/dL (11.27-16.99) 01/01/25 21:55 Hct 40.6 % (37-53) 01/01/25 21:55 MCV 86.2 fl (82-101) 01/01/25 21: MCH 29.5 pg (27-33) 01/01/25 21: MCHC 34.2 g/dL (30-55) 01/01/25 21:55 RDW 12.5 % (12.1-15.1) 01/01/25 21: Plt Count 335 10^3/cmm (157-399) 01/01/25 21: MPV 8.7 fL (7.4-10.4) 01/01/25 21:55 Neut % (Auto) 71.7 % 01/01/25 21: Lymph % (Auto) 17.7 % 01/01/25 21: [place] % (Auto) 7.4 % 01/01/25 21: Eos % (Auto) 2.3 % 01/01/25 21: Baso % (Auto) 0.5 % 01/01/25: Neut # (Auto) 10.37 10^3/uL (1.8-7.7) H 01/01/25 21:55 Lymph # (Auto) 2.6 10^3/uL (0.8-4.8) 01/01/25 21: [place] # (Auto) 1.1 10^3/uL (0.2-0.9) H 01/01/25 21:55 Eos # (Auto) 0.3 10^3/uL (0.0-0.8) 01/01/25 21: Baso # (Auto) 0.1 10^3/uL (0.0-0.1) 01/01/25 21: Nucleated RBC % (auto) 0 % 01/01/25: Nucleated RBCs # 0.0 /100WBC 01/01/25 21: D-Dimer 2.81 ug/mLFEU (0-0.59) H 01/01/25 21:55 Sodium 137 mmol/L (136-145) 01/01/25 21:55 Potassium 4.1 mmol/L (3.5-5.1) 01/01/25 21:55 Chloride 101 mmol/L (98-107) 01/01/25 21:55 Carbon Dioxide 26 mmol/L (22-29) 01/01/25 21:55 Anion Gap 14.1 (5-19) 01/01/25 21:55 BUN 18 mg/dL (8-23) 01/01/25 21:55 Creatinine 0.7 mg/dL (0.7-1.2) 01/01/25 21:55 GFR Calculation 113.9 mL/min (90-130) 01/01/25 21:55 Glucose 97 mg/dL (65-115) 01/01/25 21:55 Calculated Osmolality 286 mOsm/kg (285-295) 01/01/25 21:55 Calcium 9.3 mg/dL (8.5-10.5) 01/01/25 21:55 Total Bilirubin 0.3 mg/dL (0.15-1.2) 01/01/25 21:55 AST 16 U/L (0-40) 01/01/25 21:55 ALT 12 U/L (0-41) 01/01/25 21:55 Alkaline Phosphatase 86 U/L (40-130) 01/01/25 21:55 Troponin T Baseline 7 ng/L (0-15) 01/01/25 21:55 NT-Pro-B Natriuret Pep 47 pg/mL (0-125) 01/01/25 21:55 Total Protein 5.9 g/dL (6.6-8.7) L 01/01/25 21:55 Albumin 3.6 g/dL (3.5-5.2) 01/01/25 21:55 Globulin 2.3 g/dL (1.3-4.6) 01/01/25 21:55 All radiology interpretation(s) finalized by discharge Discharge Plan Discharge Patient Disposition: Home Clinical Impression: Chest pain Condition: Stable Prescriptions: New pantoprazole [Protonix] 40 mg tablet,delayed release (DR/EC) 40 mg PO DAILY Qty: 30 0RF sucralfate 1 gram tablet 1 g PO TID 28 Days Qty: 84 0RF Discharge Orders: Discharge ED (Routine); Ordered 01/02/25 Ordered By: Andrea Eden Patient Instructions: Noncardiac Chest Pain (ED), Opioid Safety, Pain Management, Patient Portal & Radha Instructions Activity Restrictions/Additional Instructions: Return for continued or worsening chest discomfort, vomiting, shortness of breath, any other concerning symptoms. Print Language: Irish Coding Level of Care Code ED Financial Administrative Assistant for Andre Head
[2025-01-01 22:01] LABS: Hematocrit 40.6 % (37-53); Hemoglobin 13.90 g/dL (11.27-16.99); Mean Corpuscular HGB Conc 34.2 g/dL (30-55); Mean Corpuscular Hemoglobin 29.5 pg (27-33); Mean Corpuscular Volume 86.2 fl (82-101); Nucleated Red Blood Cells % 0 %; Platelet Count 335 10^3/cmm (157-399); Red Blood Count 4.71 10^6/uL (3.85-5.65); White Blood Count 14.47 10^3/uL (3.29-11.43)
[2025-01-01 22:21] LABS: Troponin(5th) Baseline 7 ng/L (0-15)
[2025-01-01] MEDS: lidocaine 2% viscous 15 ML, aluminum-mag hydrox-simethicon 30 ML, sucralfate oral liq 1 GM PO (22:26)
[2025-01-01] MEDS: ondansetron 2 mg/ML SDV 2 mL 4 MG IVP (22:26)
[2025-01-01] MEDS: morphine 4 mg/mL SDV 1 mL IVP (22:26)
[2025-01-01 22:30] LABS: Alanine Aminotransferase 12 U/L (0-41); Albumin Level 3.6 g/dL (3.5-5.2); Alkaline Phosphatase 86 U/L (40-130); Anion Gap 14.1 (5-19); Aspartate Amino Transferase 16 U/L (0-40); Blood Urea Nitrogen 18 mg/dL (8-23); Calcium 9.3 mg/dL (8.5-10.5); Carbon Dioxide 26 mmol/L (22-29); Chloride 101 mmol/L (98-107); Creatinine Clr Calc Pharmacy 129.5892; Globulin 2.3 g/dL (1.3-4.6); Glucose 97 mg/dL (65-115); NT Pro B Type Natriuretic Pept 47 pg/mL (0-125); Osmolality Calculated 286 mOsm/kg (285-295); Potassium 4.1 mmol/L (3.5-5.1); Sodium 137 mmol/L (136-145); Total Protein 5.9 g/dL (6.6-8.7)
--- NOTE | 2025-01-01 22:32 | CTR_ITS ---
PROCEDURE INFORMATION: Exam: CTA Chest With Contrast Exam date and time: 01/01/2025 10:47 PM Age: 64 years old Clinical indication: Pain and abnormal findings; Abnormal diagnostic tests; Elevated d-dimer; Chest pressure; Prior surgery; Surgery date: 3-7 days post-operative; Surgery type: RT total shoulder 12/27/2024. Coronary stents; C/O chest pain since total shoulder surgery five days ago. Dimer 2.8. TECHNIQUE: Imaging protocol: Computed tomographic angiography of the chest with contrast. Exam focused on the arteries. 3D rendering (Not supervised by radiologist): MIP and/or 3D reconstructed images were created by the technologist. Radiation optimization: All CT scans at this facility use at least one of these dose optimization techniques: automated exposure control; mA and/or kV adjustment per patient size (includes targeted exams where dose is matched to clinical indication); or iterative reconstruction. Contrast material: OMNI 350; Contrast volume: 71 ml; Contrast route: INTRAVENOUS (IV); COMPARISON: CR (CHEST, ) 01/01/2025 10:04 PM RADIATION DOSE METRICS: Total DLP (mGy-cm): 480.23 FINDINGS: Pulmonary arteries: Normal. No pulmonary emboli. Aorta: Mild calcification aortic arch.. No aortic aneurysm. No aortic dissection. Lungs: Artifact. Increased parenchymal density posteriorly in the upper and lower lobes. This may be related to dependent atelectasis or edema. No consolidation Pleural spaces: Unremarkable. No pneumothorax. No pleural effusion. Heart: Heart size is normal. Coronary artery calcification. This can be associated with increased incidence artery heart disease. Lymph nodes: Unremarkable. No enlarged lymph nodes. Bones/joints: Mild degenerative changes. Right shoulder replacement. Soft tissues: Fluid and air seen in the soft tissues anterior superior to the right shoulder prosthesis. Collections of air seen in the anterior right upper chest wall. This felt to be related to the recent surgery. This should be correlated clinically. CT/CT angio chest PE protcl [id number] IMPRESSION: 1. No demonstrable pulmonary emboli. 2. Artifact. 3. Increased parenchymal density posteriorly in the upper and lower lobes may represent dependent atelectasis or edema. 4. Collections of air right anterior superior chest wall and some air in fluid seen anterior superior to right shoulder prosthesis. These are felt to be related the recent surgery 5. Coronary artery calcification
[2025-01-01] MEDS: iohexol 350 mg/mL 500 mL Btl (per mL) IV (22:48)
--- NOTE | 2025-01-01 23:50 | ECG_ITS ---
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: : 1960 Requested By: Andrea Lakhani Order Number: [id number] Miki MD: CHASE FRAGOSO Measurements Intervals [place] Rate: 73 P: 46 SD: 124 QRS: 60 QRSD: 106 T: 58 QT: 417 QTc: 460 Interpretive Statements SINUS RHYTHM POSSIBLE RIGHT VENTRICULAR CONDUCTION DELAY [RSR (QR) IN V1/V2] POSSIBLE INFERIOR MYOCARDIAL INFARCTION , PROBABLY OLD [30 ms Q WAVE IN II/aVF] PROBABLE ANTEROLATERAL MYOCARDIAL INFARCTION , OF INDETERMINATE AGE [35 ms Q WAVE IN I/aVL/V3-V6] No previous ECG available for comparison Electronically Signed On 01-03-2025 18:47:46 CDT by CHASE FRAGOSO [email or web address]
[2025-01-02] VITALS (15 sets, daily range): BP systolic 107–147; BP diastolic 66–85; PULSE 60–81; RESP 12–19; O2SAT 93–97
[2025-01-02 00:31] LABS: Troponin 5 2HR 6.25 ng/L (0-15); Troponin 5 2HR Delta -0.75 ABS# (0-10)
[2025-01-02] MEDS: lidocaine 2% viscous 15 ML, aluminum-mag hydrox-simethicon 30 ML, sucralfate oral liq 1 GM PO (02:52)
--- NOTE | 2025-01-02 02:59 | PC.NURSE ---
This keno writer was attempting to discharge pt as EMS had arrived to transport him back to SNF. Pt started c/o return of his chest pain, he has been pain free for nearly 4 hrs. Provider notified and pt given another dose of GI Cocktail. EMS to wait for a bit to see if resolves then can transport pt. Will reassess in 15min.
--- NOTE | 2025-01-02 03:27 | PC.NURSE ---
Pt reporting his pain 1/10 and feels good to go back to nursing facility.
--- OUTSIDE RECORDS SUMMARY | 2025-01-04 08:01 | XMS_ITS | Encounter Summary ---
Author Organization [facility] Address [address] [place] [address] Care Team Providers Care Olive Picker Name Role Phone Derekc Lu MD Primary Care Provider [phone] Encounter Details Date Type Department Care Team (Latest Contact Info) Description 12/02/2024 Results Follow-Up [facility] - Orthopedic [facility] [address] [place] [address] Frederick Allison, RETAIL STOCKER [address] [place] [address] MRI SHOULDER WO CONTRAST RIGHT Social History Tobacco Use Types Packs/Day Years Used Date Smoking Tobacco: Former Cigarettes Q uit: 10/17/2001 Smokeless Tobacco: Never Alcohol Use Standard Drinks/Week Comments Never 0 (1 standard drink = 0.6 oz pur e alcohol) Sex and Gender Information Value Date Recorded Sex Assigned at Male 01/31/2024 2:24 PM CDT Legal 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 MRI shoulder without contrast right dated 11/30/2024 shows the proximal aspect of the long head of the biceps tendon unable to be visualized presumably ruptured. Subscapularis appears to be intact. There is a full-thickness supraspinatus tear with retraction to the medial humeral head and grade 2 fatty infiltration with proximal subluxation of his humeral head. Mild glenohumeral and significant AC j oint changes present. I would have him see back Dr. Bryant for a surgical discussion considering his complex pre-existingmedical conditions. Thanks. documented in this encounter Plan of Treatment Upcoming Encounters Date Type Department Care Team (Late st Contact Info) Description 01/09/2025 11:15 AM CDT Office Visit [facility] Orthopedics - Orthopedic [facility] [address] [place] [phone] Frederick Allison FNP [address] [place] [phone] 01/26/2025 9:20 AM CDT Office Visit [facility] Pain [facility] [address] [place] [address] [facility] [address] [place] [address] 01/26/2025 2:00 PM CDT Office Visit [facility] [address] [place] [address] Tim Aden MD [address] [place] [address] 03/06/2025 4:00 PM CDT Office Visit [facility] Family Medicine [place] [address] [address] Angie Otto FNP [address] [phone] 05/02/2025 1:50 PM MAINTENANCE [employer]ER Office Visit [facility] [address] [place] [phone] Angeline Perez PA [address] [place] [phone] documented as of this encounter Visit Diagnoses Not on filedocumented in this encounter Additional Health Concerns Assessment Noted Time PHQ-9 Depression Total Score: 1 09/03/19 25 2:03 PM CDT documented as of this encounter Care Teams Olive Picker Relationship Specialty Start Date End Date Dereck Lu MD [address] [phone] PCP - General Family Practice 06/02/23 documented as of this encounter
--- OUTSIDE RECORDS SUMMARY | 2025-01-04 08:01 | XMS_ITS | Clinical Summary ---
Author Organization [facility] Address [address] [place]: Epic Prelude ADT ZIYAD MANCUSO [address] Care Team Providers Care Oracle Specialist Name Role Phone Dereck Lu MD Primary Care Provider [phone] Allergies Active Allergy Reactions Criticality Noted Date Comments Aspirin Other (See Comments) 12/20/2024 Ears Ring Ibuprofen Other (See Comments) 06/02/2023 Ears ring Medications aspirin (ECOTRIN EC) 81 mg Tablet, Delayed Release (E.C.) Take 1 Tablet (81 mg) by mouth daily. 30 Tablet 3 022 Active nitroglycerin (NITROSTAT) 0.4 mg Tablet, Sublingual Place 1 Tablet (0.4 mg) under tongue every 5 minutes as needed for Chest Pain. 25 Tablet 3 022 Active FLUoxetine (PROzac) 20 mg capsule Take 1 Capsule (20 mg) by mouth daily. 90 Capsule 1 025 Active atorvastatin (LIPITOR) 40 mg tabletIndicatio ns:Benign hypertension Take 1 Tablet (40 mg) by mouth daily at bedtime. 100 Tablet 3 025 Active naloxone (NARCAN) 4 mg/spray [place], Non-Aerosol Administer 1 [place] (4 mg) in one nostril (alternate nostril with each dose) one time as needed for Respiration (slowed with opioid use). Push plunger to administer. Call 911. May repeat dose, every 2-3 minutes, if the person does not wake up or breathing is not improved. 1 Each 1 Active cetirizine (ZyrTEC) 10 mg tabletIndicatio ns:Environmenta l allergies Take 1 Tablet (10 mg) by mouth daily at bedtime. 90 Tablet 1 Active EPINEPHrine (EPIPEN) 0.3 mg/0.3 mL Auto-InjectorIn dications:Histo ry of anaphylaxis Inject 0.3 mL (0.3 mg) by intramuscular injection 1 time daily as needed for Anaphylaxis. 1 Each 1 Active morphine (MS CONTIN) 30 mg Controlled Release tablet Take 30 mg by mouth daily. Active naloxone (NARCAN) 4 mg/spray [place], Non-AerosolIndi cations:Call 911. Administer 1 actuation in 1 nostril. Repeat every 2 to 3 minutes if no or minimal response Administer 1 [place] (4 mg) in left nostril one time as needed for Other (See Comment) (FOR EMERGENCY USE ONLY: Call 911. Administer 1 actuation in 1 nostril. Repeat every 2 to 3 minutes if no or minimal response). FOR EMERGENCY USE ONLY: Call 911. Administer 1 actuation in 1 nostril. Repeat every 2 to 3 minutes if no or minimal response 1 Each Active sennosides-docu sate sodium (SENNA-S) 8.6-50 mg tablet Take 1 Tablet by mouth 2 times daily. Take only when taking narcotics 30 Tablet 2 Active aspirin (Aspirin EC) 81 mg Tablet, Delayed Release (E.C.) Take 1 Tablet (81 mg) by mouth daily for 28 days. Take for 28 days for blood clot prevention. 28 Tablet 2024 Active oxyCODONE-aceta minophen (Percocet) 5-325 mg tabletIndicatio ns:S/P shoulder replacement, right Take 1 Tablet by mouth every 4 hours as needed for Pain, Severe. Max Daily Amount: 6 Tablets 30 Tablet Active ondansetron (ZOFRAN ODT) 4 mg Tablet, Rapid Dissolve Take 1 Tablet (4 mg) by mouth every 6 hours as needed for Nausea/Emesis. Dissolve tablet on top of tongue, then swallow with saliva. 15 Tablet 1 Active hydrOXYzine HCL (ATARAX) 50 mg tabletIndicatio ns:Primary insomnia Take 1 Tablet (50 mg) by mouth daily at bedtime. 90 Tablet 1 025 2024 Discontinued morphine (AVINza) 30 mg Extended Release 24 hour capsuleIndicati ons:alf use of drug,Other chronic pain,Chronic shoulder pain, unspecified laterality,Stat us post above-knee amputation of right lower extremity (CMS/HCC),Statu s post below knee amputation, unspecified laterality (CMS/HCC) Take 1 Capsule (30 mg) by mouth daily. Max Daily Amount: 30 mg 30 Capsule 025 2024 Discontinued morphine (AVINza) 30 mg Extended Release 24 hour capsuleIndicati ons:alf use of drug,Other chronic pain,Chronic shoulder pain, unspecified laterality,Stat us post above-knee amputation of right lower extremity (CMS/HCC),Statu s post below knee amputation, unspecified laterality (CMS/HCC) Take 1 Capsule (30 mg) by mouth daily. Max Daily Amount: 30 mg 30 Capsule 025 2024 Discontinued HYDROcodone-kesha taminophen (NORCO) 5-325 mg tabletIndicatio ns:ocean transportation intermediary use of drug,Other chronic pain,Chronic shoulder pain, unspecified laterality,Stat us post above-knee amputation of right lower extremity (CMS/HCC),Statu s post below knee amputation, unspecified laterality (CMS/HCC) Take 1 Tablet by mouth daily. Max Daily Amount: 1 Tablet 30 Tablet 025 2024 Discontinued HYDROcodone-kesha taminophen (NORCO) 5-325 mg tabletIndicatio ns:ocean transportation intermediary use of drug,Other chronic pain,Chronic shoulder pain, unspecified laterality,Stat us post above-knee amputation of right lower extremity (CMS/HCC),Statu s post below knee amputation, unspecified laterality (CMS/HCC) Take 1 Tablet by mouth daily. Max Daily Amount: 1 Tablet 30 Tablet 025 2024 Discontinued naloxone (NARCAN) 4 mg/spray [place], Non-AerosolIndi cations:Call 911. Administer 1 actuation in 1 nostril. Repeat every 2 to 3 minutes if no or minimal response FOR EMERGENCY USE ONLY: Call 911. Administer 1 actuation in 1 nostril. Repeat every 2 to 3 minutes if no or minimal response 2 Each 025 2024 Discontinued sennosides-docu sate sodium (SENNA-S) 8.6-50 mg tablet Take 1 Tablet by mouth 2 times daily. Take only when taking narcotics 30 Tablet 2 025 2024 Discontinued(A lternate therapy prescribed) aspirin (Aspirin EC) 81 mg Tablet, Delayed Release (E.C.) Take 1 Tablet (81 mg) by mouth daily for 28 days. Take for 28 days for blood clot prevention. 28 Tablet 025 2024 Discontinued(A lternate therapy prescribed) oxyCODONE (ROXICODONE) 5 mg tabletIndicatio ns:S/P shoulder replacement, right Take 1 Tablet (5 mg) by mouth every 4 hours as needed for Pain or Pain, Break-Through (For break through pain). Max Daily Amount: 30 mg 20 Tablet 025 2024 Discontinued(A lternate therapy prescribed) Active Problems Problem Noted Date Diagnosed Date Preoperative general physical examination 2024 Rotator cuff tear arthropathy of right shoulder 12/20/2024 MIKE (obstructive sleep apnea) 12/20/2024 Vapes nicotine containing substance 12/20/2024 Atherosclerosis of [place] co ronary artery of [place] heart with stable angina pectoris 06/02/2023 History of GA (myocardial infarction) 03/30/2023 Primary insomnia 03/30/2023 Former smoker 10/16/2021 Engages in vaping 10/16/2021 Mild episode of recurrent major depressive disor jazmin 09/18/2021 Assessment & Plan (09/18/2021 3:39 PM CDT): Stable. Continue current treatment. Every Word Counts - Depression ([facility]) Benign hypertension 04/01/2021 Status post above-knee amputation 04/01/2021 Assessment & Plan (09/18/2021 3:39 PM CDT): Functional Status good. Follow for clinical complications. Every Word [facility] - Amputation ([facility]) Status post below-knee amputation 04/01/2021 Tear of rotator cuff 04/01/2021 Family history of coronary artery disease 2018 Pure hypercholesterolemia 05/19/2019 Overview (10/16/2021): 05/19/2019 ACC/AHA risk 14.7%. Start rosuvastatin 20 mg and recheck lipids 3 months History of colon polyps 12/04/2017 Overview (06/02/2023): Precancerous polyps in 2013, according to patient. Re-referred for colonoscopy to be done at the same time as his EGD. Last Assessment & Plan: Precancerous polyps in 2013, according to patient. Re-referred for colonoscopy to be done at the same time as his EGD. Dependence on wheelchair 07/28/2016 Overview (10/16/2021): 07/28/2016 Electric wheelchair ordered via [employer]. Last Assessment & Plan: Electric wheelchair ordered via [employer]. Chronic right shoulder pain 04/08/2016 Overview (10/16/2021): 01/19/2019 Reported worsened control, possibly due to stopping fluoxetine a month ago due to erectile dysfunction. He will continue his current dose of opioids and ibuprofen 600 mg twice daily. He agrees to pain consult to Dr. Sarita Iraheta to see if she has other ideas about how we might proceed other than increasing opioids. Diagnosis: incomplete rotator cuff tear and biceps tendonitis in right shoulder (due to using manual wheelchair and doing transfers), also wrist pain bilaterally. Note: Saw Dr. Dodson (orthopedist) 05/09/16: surgery would be difficult due to bilateral leg amputation, with no guaranteed success. Patient started rehab 05/2016 and is hopeful he may be eventually able to stop opioids. Opioids started:2013 Did PCP prescribe this medication? Carissa Smith MD When was pt last seen by PCP?01/16/2017 How often does PCP want to see pt for pain management visit?once per year Recent change to rx: hydrocodone stopped spring 2016 per patient request Has patient had pain clinic referral? no Rx: Morphine ER 15 mg twice daily prescribed 01/03/21 postdated 01/04/21 for #56 for 2 months, next due 03/01/21 Also uses Vicodin 5/325 occasionally for breakthrough pain, #28 on 01/03/21 postdated 01/04/21 for #56 for 2 months, next due 03/01/21 Next UDS due: 02/12/2020 Red flags? refilled 3 days early on 12/14/2017 GoEmmi video watched and medication agreement signed 01/16/2017 note: on 02/04/2019 I refilled his morphine although it wasn't due until 02/08, because it is more convenient for him and we to refill both meds at the same time. He should therefore have 4 extra tabs of morphine, which is okay. Carissa Smith MD Last Assessment & Plan: Reported worsened control, possibly due to stopping fluoxetine a month ago due to erectile dysfunction. He will continue his current dose of opioids and ibuprofen 600 mg twice daily. He agrees to pain consult to Dr. Sarita Iraheta to see if she has other ideas about how we might proceed other than increasing opioids. Resolved Problems Problem Noted Date Diagnosed Date Resolved Date NSTEMI (non-ST elevated myoc ardial infarction) 10/16/2021 03/30/2023 GISELL (acute kidney injury) 10/16/2021 Refused influenza vaccine 04/01/2021 Major depressive disorder wi th current active episode 04/01/2021 06/02/2023 Encounters Date Type Department Care Team Description 12/27/2024 11:55 AM CDT - 12/27/2024 2:00 PM CDT Surgery [facility] Operating Room [address] [place] [address] Vidya ZIYAD [phone] Daniel Bryant III, MD SHOULDER ARTHROPLASTY TOTAL REPLACEMENT 12/27/2024 11:12 AM CDT Anesthesia Event [facility] Operating Room [address] [place] [address] Justin Jones MD 12/27/2024 9:19 AM CDT - 12/29/2024 10:32 AM CDT Hospital Encounter [facility] Inpatient [address] [place] [address] Daniel Bryant III, MD Rotator cuff tear arthropathy of right shoulder Discharge Disposition: Snf Fac(SNF) with Medicare Certification in Anticipation of Skilled Care 12/20/2024 10:05 AM CDT - 12/20/2024 11:59 PM CDT Hospital Encounter [facility] [address] [place] [address] Justin Stevens MD Discharge Disposition: Home or Self Care 12/20/2024 9:48 AM CDT - 12/20/2024 11:59 PM CDT Hospital Encounter [facility] Pre Admission [facility] [address] [place] [address] Daniel Bryant III, MD Discharge Disposition: Home or Self Care 12/20/2024 Travel 12/15/2024 Telephone [facility] Orthopedics - Orthopedic [facility] [address] [address] Daniel Bryant III, MD [facility] 12/14/2024 12:44 PM CDT - 12/14/2024 11:59 PM CDT Hospital Encounter [facility] CT Scan [address] [place] [phone] Daniel Bryant III, MD Discharge Disposition: Home or Self Care 12/14/2024 7:34 AM CDT - 12/14/2024 11:59 PM CDT Hospital Encounter [facility] Nuclear Medicine [address] [place] [phone] Tim Aden MD Discharge Disposition: Home or Self Care 12/14/2024 4:50 AM CDT - 12/14/2024 11:59 PM CDT Hospital Encounter [facility] Medicine [address] [place] [phone] Brooke Johnson NP Discharge Disposition: Home or Self Care 12/14/2024 Results Follow-Up [facility] [address] [facility] [address] [place] [phone] Brooke Johnson NP NM MYOCARD PERF IMAG SPECT MULT 12/14/2024 Telephone [facility] [address] [place] [address] Daniel Bryant III, MD Question (Wants FMLA form filled out for daughter. ) 12/12/2024 Telephone [facility] [address] [place] [phone] [facility] 12/12/2024 Orders Only [facility] Family Medicine [place] [address] [facility] [address] [place] [phone] Dereck Lu MD Environmental allergies (Primary Dx); History of anaphylaxis 12/10/2024 Patient Self-Triage [facility] [address] [place] [address] 12/10/2024 Patient Self-Triage [facility] [address] [place] [address] 12/06/2024 Telephone [facility] Case Management [address] [place] [address] Daniel Bryant III, MD Question 12/05/2024 9:45 AM CDT Office Visit [facility] [address] [place] [phone] Daniel Bryant III, MD Complete tear of right rotator cuff, unspecified whether traumatic (Primary Dx) 12/05/[address] [facility] [address] [place] [phone] Tim Aden MD pre op clearance 12/05/2024 Telephone [facility] [address] [place] [phone] Daniel Bryant III, MD Surgical Clearance (Cardiac ) 12/05/2024 Orders Only [facility] [address] [place] [phone] Daniel Bryant III, MD 12/02/2024 Results Follow-Up [facility] [address] [place] [phone] Frederick Allison FNP MRI SHOULDER WO CONTRAST RIGHT 11/30/2024 8:16 AM CDT - 11/30/2024 11:59 PM CDT Hospital Encounter [facility] [address] [place] [phone] Frederick Allison FNP Discharge Disposition: Home or Self Care 11/29/2024 External Device Data [facility] ABSTRACTION Provider, Abstract 11/23/2024 10:30 AM CDT Office Visit [facility] [address] [place] [phone] Frederick Allison FNP Chronic right shoulder pain (Primary Dx) 11/23/2024 10:20 AM CDT Ancillary Procedure [facility] [address] [place] [address] Frederick Allison FNP Chronic right shoulder pain 11/01/2024 9:40 AM CDT Office Visit [facility] [address] [place] [phone] Suzette Carranza, CHEMICAL TECHNICIAN Chronic shoulder pain, unspecified laterality (Primary Dx); alf use of drug 11/01/2024 Refill [facility] [address] [place] [address] Rafaela Castellano DO alf use of drug; Other chronic pain; Chronic shoulder pain, unspecified laterality; Status post above-knee amputation of right lower extremity (CMS/HCC); Status post below knee amputation, unspecified laterality (CMS/HCC) from Last 3 Months Immunizations Immunization Administration Dates Next Due (ADACEL/BOOSTRIX)(10 YR UP) TDAP VACCINE, 0.5ML, IM 03/14/2009 Family History Medical History Relation Name Comments Heart Disease Brother Herman Hypertension Brother Herman Diabetes Father JAZZ Hypertension Father JAZZ ADHD Sister Relation Name Status Comments Brother Herman Father JAZZ Sister Social History Tobacco Use Types Packs/Day Years Used Date Smoking Tobacco: Former Cigarettes 0.8 22.4 1 980 - 10/17/2001 Smokeless Tobacco: Never Tobacco Cessation:Counseling Given: Not Answered Alcohol Use Standard Drinks/Week Comments Never 0 (1 standard drink = 0.6 oz pur e alcohol) Sex and Gender Information Value Date Recorded Sex Assigned at Male 01/31/2024 2:24 PM CDT Legal 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 Gender Identity Male 01/31/2024 2:24 PM CDT Sexual Orientation Straight 01/31/2024 2: 24 PM CDT Last Filed Vital Signs Vital Sign Reading [...] Mass Index 25.24 12/27/2024 9:29 AM CDT Plan of Treatment Upcoming Encounters Date Type Department Care Team (Late st Contact Info) Description 01/09/2025 11:15 AM CDT Office Visit [facility] Orthopedics - Orthopedic [facility] [address] [place] [phone] Estefany Frederick Joaquin, [facility] [address] [place] [phone] 01/26/2025 9:20 AM CDT Office Visit [facility] [address] [place] [address] Suzette Carranza, [facility] [address] [place] [address] 01/26/2025 2:00 PM CDT Office Visit [facility] [address] [place] [address] Tim Aden MD [address] [place] [address] 03/06/2025 4:00 PM CDT Office Visit [facility] [address] [phone] Angie Otto, [facility] [address] [address] 05/02/2025 1:50 PM COOLING ROOM ATTENDANT Office Visit [facility] [address] [place] [phone] Angeline Perez PA [address] [place] [address] Health Maintenance Due Date Last Done Comments FIT/FOBT Q 1 YEAR (AUTO ORDER) 09/03/1979 FLEX SIG/CT COLONOGRAPHY Q 5 YEARS (AUTO ORDER) 09/03/1979 FIT/FOBT Q 1 year 2006 Flex Sig/CT Colonography Q 5 years 2006 ZOSTER VACCINE (1 of 2) 09/03/2011 DTAP/TDAP/TD VACCINES (2 - T d or Tdap) 03/14/2019 03/14/2009 RSV VACCINE (60+ or ) (1 - Risk 60-74 years 1-dose series) 2021 COVID-19 Vaccine (2 - 2023-2 5 season) 2024 08/10/2020 Pre-Diabetes and Diabetes Screening 10/16/2024 10/16/2021 COLORECTAL CANCER SCREENING (AUTO ORDER) 12/11/2024 12/11/2014, 12/11/2014 COLORECTAL SCREENING 12/11/2024 12/11/2014, 12/12/19 INFLUENZA VACCINE (#1) 2024 , 03/23/2024, 03/30/2023, Additional history exists Colorectal Cancer Screening (AUTO ORDER) 06/24/2026 Colorectal Cancer Screening 06/24/2026 FIT-DNA Q 3 years 06/24/2026 06/24/2023 FIT/ DNA Q 3 YEARS (AUTO ORDER) 06/24/2026 4, 06/24/2023 [place] Preventative Visit/Annual Wellness Visit Completed 2024, 06/02/2023, 11/01/2021 Medical Devices Implanted Type Area Precision Structural Metal Fitter Device Identifier Shelf Expiration Date Model / Serial / Lot Screw Glenoid Baseplate 6.5x40mm [id number] - [id number] Implanted:Qty: 1 on 12/27/2024 by Daniel Bryant III, MD at [facility] Screw Right: Shoulder [employer] 12/27/2025 [id number] / / [id number] Screw Glenoid Baseplate 5x38mm [id number] - [id number] Implanted:Qty: 1 on 12/27/2024 by Daniel Bryant III, MD at [facility] Screw Right: Shoulder [employer] 12/27/2025 [id number] / / [id number] Screw Glenoid Baseplate 5x42mm [id number] - [id number] Implanted:Qty: 1 on 12/27/2024 by Daniel Bryant III, MD at [facility] Screw Right: Shoulder [employer] 12/27/2025 [id number] / / [id number] Baseplate Glenoid Augm Wedge Full 25mm [id number] - [id number] Implanted:Qty: 1 on 12/27/2024 by Daniel Bryant III, MD at [facility] Shoulder Right: Shoulder [employer] [id number] 07/06/2029 [id number] / [id number] / Glenosphere Perform 42mm Rvrs Shldr [id number] - [id number] Implanted:Qty: 1 on 12/27/2024 by Daniel Bryant III, MD at [facility] Shoulder Right: Shoulder [employer] [id number] 10/25/2029 [id number] / [id number] / Stem Hum Perform Sz 3+ Long [id number] - [id number] Implanted:Qty: 1 on 12/27/2024 by Daniel Bryant III, MD at [facility] Shoulder Right: Shoulder [employer] [id number] 10/05/2029 [id number] / [id number] / Insert Hum Perform Rvrs Sz 3/4 +6 42mm Shldr [id number] - [id number] Implanted:Qty: 1 on 12/27/2024 by Daniel Bryant III, MD at [facility] Shoulder Right: Shoulder [employer] [id number] 08/09/2029 [id number] / [id number] / Stent Resolute Evaristo 2.5x12mm [id number] - [id number] Implanted:Qty: 1 on 10/16/2021 by Tim Aden MD at [facility] Stent Left: Coronary [email or web address] 09/19/2023 [id number] / / [id number] Explanted Type Area Precision Structural Metal Fitter Device Identifier Shelf Expiration Date Model / Serial / Lot Wireguide Aequalis Perform 2.9p077pk [id number] - [id number] Explanted:Qty: 1 on 12/27/2024 by Daniel Bryant III, MD at [facility] Wire Right: Shoulder [employer] [id number] 09/28/2029 [id number] / / [id number] Procedures Procedure Name Priority Date/Time Associated Diagnosis Comments TELEMETRY REPORT 01/02/2025 9:57 AM CDT RT ASSESS AND TREAT Routine 12/27/2024 4 :11 PM CDT POC GLUCOSE Routine 12/27/2024 3:13 PM CDT XR SHOULDER 1 VW RIGHT Routine 1:36 PM CDT POC GLUCOSE Routine 12/27/2024 1:34 PM CDT SD ARTHROPLASTY GLENOHUMERAL JOINT TOTAL SHOULDER 12/27/2024 11:55 AM CDT Rotator cuff tear arthropathy of right shoulder SD ANES INSERT SUPRAGLOTTIC AIRWAY Routine 12/27/2024 11:30 AM CDT SD ANESTHESIA BLOCK PB PLACEHOLDER CHARGE Routine 12/27/2024 11:12 AM CDT XR CHEST PA OR AP 1 VW Routine 11:28 AM CDT Preoperative testing COMPREHENSIVE METABOLIC PANEL Routine 12/20/2024 10:50 AM CDT CBC WITH DIFFERENTIAL Routine 12/20/2024 10:50 AM CDT EKG 12-LEAD Routine 12/20/2024 10:[address] SHOULDER WO CONTRAST RIGHT Routine 12/14/2024 1:23 PM CDT Complete tear of right rotator cuff, unspecified whether traumatic NM MYOCARD PERF IMAG SPECT MULT Routine 12/14/2024 10:21 AM CDT ASHD (arteriosclerotic heart disease) Old myocardial infarction History of coronary artery stent placement NM PHARMACOLOGICAL STRESS TEST Routine 12/14/2024 9:12 AM CDT ASHD (arteriosclerotic heart disease) Old myocardial infarction History of coronary artery stent placement MRI SHOULDER WO CONTRAST RIGHT Routine 11/30/2024 9:02 AM CDT Chronic right shoulder pain XR SHOULDER 2+ VW RIGHT Routine 11/24/19 10:29 AM CDT Chronic right shoulder pain COLON CANCER SCREEN, STOOL DNA Routine 06/24/2023 7:00 PM COOLING ROOM ATTENDANT Encounter for colorectal cancer screening HEMOGLOBIN A1C Routine 10/16/2021 3:32 AM CDT from Last 3 Months or Most Recently Relevant to Health Maintenance Results * TELEMETRY REPORT (01/02/2025 9:57 AM CDT) us Provider Scanning ECG ORDERABLES Final Result * (ABNORMAL) POC GLUCOSE (12/27/2024 3:13 PM CDT) Only the most recent of2 resultswithin the time period is included. GLUCOSE POC 100(H) 74 - 99 mg/dL 12/27/2024 3:13 PM CDT [facility] SPECIMEN SOURCE, GLUCOSE POC Whole Blood 12/27/2024 3:13 PM CDT [facility] Blood, whole 12/27/2024 3:13 PM CDT 12/27/2024 3:21 PM CDT Daniel Bryant III, MD POINT OF CARE TESTING Marlena l Result [facility][id number] [facility] [place] [address] * XR SHOULDER 1 VW RIGHT (12/27/2024 [...] No hardware complication identified. us Frederick Allison CHEMICAL TECHNICIAN DIAGNOSTIC IMAGING ORD ERABLES Final Result * SD ANES INSERT SUPRAGLOTTIC AIRWAY (12/27/2024 11:30 AM CDT) Narrative Sybil Faustin CRNA - 12/27/2024 11:30 AM CDT Sybil Faustin CRNA 12/27/2024 11:48 AM Airway Date/Time: 12/27/2024 11:30 AM Location: OR Plan: routine intubation Patient Identity Confirmed by: Verbally with patient and armband Airway: not difficult Staffing Performed: MAILROOM SUPERVISOR/CAA Authorized by: Justin Jones MD Performed by: [...] Additional Procedure Information: atraumatic and dentition unchanged us Justin Jones MD PROCEDURE/MINOR SURGICAL O RDERABLES Final Result * SD ANESTHESIA BLOCK PB PLACEHOLDER CHARGE (12/27/2024 11:12 [...] Type: Interscalene Laterality: Right Injection technique: Single-shot Grundy Identification: ultrasound guided Local injected: Ropivacaine 0.5% [...] events Outcome: A full evaluation is pending us Justin Jones MD PROCEDURE/MINOR SURGICAL O RDERABLES Final Result * XR CHEST PA OR AP 1 VW (12/20/2024 11:28 AM CDT) Anatomical Region Laterality Modality Chest Computed Radiogr aphy 12/20/2024 11:2 8 AM CDT Impressions 12/20/2024 3:04 PM CDT IMPRESSION: Please see below. EXAM: XR CHEST PA OR AP 1 VW DATE/TIME OF EXAM: 12/20/2024 11:28 AM REASON FOR STUDY: See Diagnosis DIAGNOSIS: Preoperative testing COMPARISON: October 15, 2021 TECHNIQUE: A frontal radiograph of the chest was obtained. FINDINGS: No lobar consolidation. No large pleural effusion. No pneumothorax. Normal heart size. No acute bony abnormality identified. IMPRESSION: No radiographic evidence of an acute cardiopulmonary process. Narrative Procedure Note Lydia Clancy MD - 12/20/2024 IMPRESSION: Please see below. EXAM: XR CHEST PA OR AP 1 VW DATE/TIME OF EXAM: 12/20/2024 11:28 AM REASON FOR STUDY: See Diagnosis DIAGNOSIS: Preoperative testing COMPARISON: October 15, 2021 TECHNIQUE: A frontal radiograph of the chest was obtained. FINDINGS: No lobar consolidation. No large pleural effusion. No pneumothorax. Normal heart size. No acute bony abnormality identified. IMPRESSION: No radiographic evidence of an acute cardiopulmonary process. Justin Stevens MD DIAGNOSTIC IMAGING ORDERABLES F inal Result * (ABNORMAL) CBC WITH DIFFERENTIAL (12/20/2024 10:50 AM CDT) WBC 9.6 4.8 - 10.8 K/uL 12/20/2024 10:56 AM CDT [facility] RBC 5.19 4.60 - 6.20 M/uL 12/20/2024 10:56 AM CDT [facility] HEMOGLOBIN 15.5 14.0 - 18.0 g/dL 12/20/2024 10:56 AM CDT [facility] HEMATOCRIT 45.9 41.0 - 53.0 % 12/20/2024 10:56 AM CDT [employer] MCV 88.4 84.0 - 103.0 fL 12/20/2024 10:56 AM CDT [facility] MCH 29.9(L) 31.0 - 37.0 pg 12/20/2024 10:56 AM CDT [employer] [facility] MCHC 33.8 30.0 - 35.0 g/dL 12/20/2024 10:56 AM CDT [facility] RDW 12.9 11.0 - 14.5 % 12/20/2024 10:56 AM CDT [facility] RDW-STDEV 42.2 37.0 - 54.0 fL 12/20/2024 10:56 AM CDT [facility] PLATELETS 279 140 - 440 K/uL 12/20/2024 10:56 AM CDT [employer] [facility] MPV 9.1 8.9 - 12.8 fL 12/20/2024 10:56 AM CDT [employer] NEUTROPHILS 53 42 - 75 % 12/20/2024 10:56 AM CDT [employer] [facility] LYMPHOCYTES 37 24 - 44 % 12/20/2024 10:56 AM CDT [employer] [facility] MONOCYTES 6 2 - 10 % 12/20/2024 10:56 AM CDT [employer] [facility] EOSINOPHILS 3 0 - 7 % 12/20/2024 10:56 AM CDT [facility] BASOPHILS 1 0 - 1 % 12/20/2024 10:56 AM CDT [facility] IMMATURE GRANULOCYTES 0 0 - 2 % 12/20/2024 10:56 AM CDT [facility] NEUTROPHIL ABSOLUTE 5.06 2.00 - 8.00 K/uL 12/20/2024 10:56 AM CDT [facility] [facility] LYMPHOCYTE ABSOLUTE 3.58 1.20 - 4.00 K/uL 12/20/2024 10:56 AM CDT [facility] MONOCYTE ABSOLUTE 0.59 0.10 - 0.60 K/uL 12/20/2024 10:56 AM CDT [facility] EOSINOPHIL ABSOLUTE 0.29 0.00 - 0.70 K/uL 12/20/2024 10:56 AM CDT [facility] BASOPHILS ABSOLUTE 0.09 0.00 - 0.20 K/uL 12/20/2024 10:56 AM CDT [facility] IMMATURE GRANULOCYTES ABSOLUTE 0.03 0.00 - 0.10 K/uL 12/20/2024 10:56 AM CDT [facility] [facility] Blood Venipuncture / Unknown 12/20/2024 10:50 AM CDT 12/20/2024 10:53 AM CDT us Justin Stevens MD HEMATOLOGY ORDERABLES Final Res ult [facility] CLIA #[id number] [address] [place] [address] * (ABNORMAL) COMPREHENSIVE METABOLIC PANEL (12/20/2024 10:50 AM CDT) SODIUM 139 136 - 145 mmol/L 12/20/2024 11:21 AM T [facility] POTASSIUM 4.1 3.4 - 4.5 mmol/L 12/20/2024 11:21 AM [facility] CHLORIDE 107 98 - 107 mmol/L 12/20/2024 11:21 AM [facility] [employer] CO2 20(L) 22 - 29 mmol/L 12/20/2024 11:21 AM [facility] CALCIUM 9.3 8.6 - 10.0 mg/dL 12/20/2024 11:21 AM [facility] [employer] BUN 9 8 - 23 mg/dL 12/20/2024 11:21 AM [facility] CREATININE 0.91 0.67 - 1.17 mg/dL 12/20/2024 11:21 AM [facility] [employer] GLUCOSE 95 74 - 99 mg/dL 12/20/2024 11:21 AM [facility] Comment:Reference range appl ies to fasting patients only. TOTAL PROTEIN 6.8 6.6 - 8.7 g/dL 12/20/2024 11:21 AM [facility] [employer] ALBUMIN 4.1 4.0 - 4.9 g/dL 12/20/2024 11:21 AM [facility] [employer] BILIRUBIN TOTAL 0.4 0.0 - 1.0 mg/dL 12/20/2024 11:21 AM [facility] [employer] ALKALINE PHOSPHATASE 93 40 - 129 U/L 12/20/2024 11:21 AM [facility] [employer] AST 26 5 - 40 U/L 12/20/2024 11:21 AM [facility] ALT 28 5 - 41 U/L 12/20/2024 11:21 AM CDT [facility] GFR >60 >=60 mL/min/1.7 3 sq meter 12/20/2024 11:21 AM CDT [facility] Comment:eGFR calculated with 2020 CKD-EPI equation. Vegetarian diet, extremely high or low muscle mass, and may affect results. Cystatin C with Glomerular Filtration Rate is a suitable alternative for these patients. 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: 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 : 1960 Requested By: Order Number: [id number] Reading MD: Tim Aden Measurements Intervals [place] Rate: 54 P: 61 SD: 132 QRS: 62 QRSD: 112 T: 52 QT: 494 QTc: 468 Interpretive Statements Sinus bradycardia Anterolateral infarct, age undetermined Abnormal ECG Electronically Signed On 12-20-2024 17:41:56 CDT by Tim Aden Procedure Note Tim Aden MD - 12/20/2024 [address] [place] [address] Test Date: 2024-12-20 Pat Name: NICHOLAS KATZ Department: 50 Room: Gender: Male Ecologist Technician: constantino : 1960 Requested By: Order Number: [id number] Reading MD: Tim Aden Measurements Intervals [place] Rate: 54 P: 61 SD: 132 QRS: 62 QRSD: 112 T: 52 QT: 494 QTc: 468 Interpretive Statements Sinus bradycardia Anterolateral infarct, age undetermined Abnormal ECG Electronically Signed On 12-20-2024 17:41:56 CDT by Tim Aden us Justin Stevens MD ECG ORDERABLES Final Result INTERFACE SYSTEM Refer to clinic/hospital department * CT SHOULDER WO CONTRAST RIGHT (12/14/2024 1:23 PM CDT) Anatomical Region Laterality Modality Upper Extremity Computed Tomogra phy 12/14/2024 1:12 PM CDT Impressions 12/14/2024 1:36 PM CDT IMPRESSION: Please see below. Exam: CT SHOULDER WO CONTRAST RIGHT Date/Time of Exam: 12/14/2024 1:23 PM Reason For Exam: pre procedural. Diagnosis: Complete tear of right rotator cuff, unspecified whether traumatic. Technique: CT of the right shoulder was performed without the administration of intravenous contrast. Comparison: None. Impression: Presurgical planning. There are no acute findings within the limited field of view. Narrative Procedure Note Cleve Forrester MD - 12/14/2024 IMPRESSION: Please see below. Exam: CT SHOULDER WO CONTRAST RIGHT Date/Time of Exam: 12/14/2024 1:23 PM Reason For Exam: pre procedural. Diagnosis: Complete tear of right rotator cuff, unspecified whether traumatic. Technique: CT of the right shoulder was performed without the administration of intravenous contrast. Comparison: None. Impression: Presurgical planning. There are no acute findings within the limited field of view. us Daniel Bryant III, MD CT ORDERABLES Final Resu lt * (ABNORMAL) NM MYOCARD PERF IMAG SPECT MULT (12/14/2024 10:21 AM CDT) EJECTION FRACTION 86(A) 50 - 65 % INTERFACE SYSTEM 12/14/2024 10:3 3 AM CDT Impressions INTERFACE SYSTEM - 12/14/2024 1:33 PM CDT Impression: 1. No evidence of significant myocardial ischemia. Small fixed inferior defect, consistent with myocardial injury.. 2. Normal left ventricular systolic function, with LVEF 86%. 3. No previous study is available for direct comparison. Case Rizo MD, [facility], [facility] Narrative INTERFACE SYSTEM - 12/14/2024 1:33 PM CDT Rest/Stress One-day SPECT Myocardial Perfusion Imaging with Pharmacologic Stress Clinical Indication and History: Chest pain. Preoperative assessment, history of CAD, GA and PCI, hypertension, hyperlipidemia, former smoker. Procedure: Patient is 68 inches tall and weighs 186 lb. Rest Tc99m dose was injected 10-20 seconds after the saline flush. Myocardial perfusion imaging was performed at rest in upright position (30 minutes following the intravenous injection of 10.9 mCi of Tc99m Tetrofosmin). Pharmacologic stress testing was performed with Regadenoson 0.4 mg injected intravenously over 10 seconds. The patient reported neck pain during stress test. At peak pharmacologic effect, the patient was intravenously injected with 28.9 mCi of Tc99m Tetrofosmin. Gated post-stress tomographic imaging was performed 45 minutes after stress in upright position, followed by supine perfusion imaging. Anterior planar and gated cardiac SPECT views were obtained and data reconstructed in the short, horizontal long and vertical long axis views. All imaging was performed on [employer] and data analyzed using [employer]. The resting heart rate was 54 beats per minute and peak heart rate during stress was 86 beats per minute. Blood pressure was 116/73 mmHg at rest and 115/72 mm Hg at peak stress. Blood pressure response was appropriate during the stress procedure. The resting electrocardiogram demonstrated sinus bradycardia, possible old inferior GA with early repolarization ST-segment changes. During stress, no significant ST-T changes were noted. There was evidence of no significant new arrhythmias. Findings: The overall quality of the study is fair. There is evidence of moderate attenuation artifact artifact. Left ventricular cavity is noted to be normal in size on the rest images without further dilatation on post stress images. SPECT images demonstrate nonhomogeneous tracer distribution and myocardial perfusion. There is a small sized mild to moderate intensity fixed inferior defect on the upright images which appears to improve on poststress upright and supine images. No significant reversible defect is identified by visual or computer-assisted quantitative analysis Gated SPECT imaging reveals normal myocardial thickening and wall motion of all visualized segments. The left ventricular ejection fraction was calculated to be 86%, with an end-diastolic volume of 69 ml. In summary, the clinical, electrocardiographic and scintigraphic findings in this 64 years patient being evaluated for ischemia using regadenoson are as follows: Clinical response: Non-diagnostic (regadenoson). Electrocardiographic response: Non-ischemic Scintigraphic response: Non-ischemic Procedure Note Case Rizo MD - 12/14/2024 Rest/Stress One-day SPECT Myocardial Perfusion Imaging with Pharmacologic Stress Clinical Indication and History: Chest pain. Preoperative assessment, history of CAD, GA and PCI, hypertension, hyperlipidemia, former smoker. Procedure: Patient is 68 inches tall and weighs 186 lb. Rest Tc99m dose was injected 10-20 seconds after the saline flush. Myocardial perfusion imaging was performed at rest in upright position (30 minutes following the intravenous injection of 10.9 mCi of Tc99m Tetrofosmin). Pharmacologic stress testing was performed with Regadenoson 0.4 mg injected intravenously over 10 seconds. The patient reported neck pain during stress test. At peak pharmacologic effect, the patient was intravenously injected with 28.9 mCi of Tc99m Tetrofosmin. Gated post-stress tomographic imaging was performed 45 minutes after stress in upright position, followed by supine perfusion imaging. Anterior planar and gated cardiac SPECT views were obtained and data reconstructed in the short, horizontal long and vertical long axis views. All imaging was performed on D[employer] and data analyzed using [employer]. The resting heart rate was 54 beats per minute and peak heart rate during stress was 86 beats per minute. Blood pressure was 116/73 mmHg at rest and 115/72 mm Hg at peak stress. Blood pressure response was appropriate during the stress procedure. The resting electrocardiogram demonstrated sinus bradycardia, possible old inferior GA with early repolarization ST-segment changes. During stress, no significant ST-T changes were noted. There was evidence of no significant new arrhythmias. Findings: The overall quality of the study is fair. There is evidence of moderate attenuation artifact artifact. Left ventricular cavity is noted to be normal in size on the rest images without further dilatation on post stress images. SPECT images demonstrate nonhomogeneous tracer distribution and myocardial perfusion. There is a small sized mild to moderate intensity fixed inferior defect on the upright images which appears to improve on poststress upright and supine images. No significant reversible defect is identified by visual or computer-assisted quantitative analysis Gated SPECT imaging reveals normal myocardial thickening and wall motion of all visualized segments. The left ventricular ejection fraction was calculated to be 86%, with an end-diastolic volume of 69 ml. In summary, the clinical, electrocardiographic and scintigraphic findings in this 64 years patient being evaluated for ischemia using regadenoson are as follows: Clinical response: Non-diagnostic (regadenoson). Electrocardiographic response: Non-ischemic Scintigraphic response: Non-ischemic Impression: 1. No evidence of significant myocardial ischemia. Small fixed inferior defect, consistent with myocardial injury.. 2. Normal left ventricular systolic function, with LVEF 86%. 3. No previous study is available for direct comparison. Case Rizo MD, SARAH BETH, BAILEE Brooke Johnson [employer] NM ORDERABLES Final Resu lt INTERFACE SYSTEM Refer to clinic/hospital department * (ABNORMAL) NM PHARMACOLOGICAL STRESS TEST (12/14/2024 9:12 AM CDT) 12/14/2024 9:12 AM CDT Impressions INTERFACE SYSTEM - 12/14/2024 1:33 PM CDT Impression: 1. No evidence of significant myocardial ischemia. Small fixed inferior defect, consistent with myocardial injury.. 2. Normal left ventricular systolic function, with LVEF 86%. 3. No previous study is available for direct comparison. Case Rizo MD, BAILEE BURLESON Narrative INTERFACE SYSTEM - 12/14/2024 1:33 PM CDT Rest/Stress One-day SPECT Myocardial Perfusion Imaging with Pharmacologic Stress Clinical Indication and History: Chest pain. Preoperative assessment, history of CAD, GA and PCI, hypertension, hyperlipidemia, former smoker. Procedure: Patient is 68 inches tall and weighs 186 lb. Rest Tc99m dose was injected 10-20 seconds after the saline flush. Myocardial perfusion imaging was performed at rest in upright position (30 minutes following the intravenous injection of 10.9 mCi of Tc99m Tetrofosmin). Pharmacologic stress testing was performed with Regadenoson 0.4 mg injected intravenously over 10 seconds. The patient reported neck pain during stress test. At peak pharmacologic effect, the patient was intravenously injected with 28.9 mCi of Tc99m Tetrofosmin. Gated post-stress tomographic imaging was performed 45 minutes after stress in upright position, followed by supine perfusion imaging. Anterior planar and gated cardiac SPECT views were obtained and data reconstructed in the short, horizontal long and vertical long axis views. All imaging was performed on [employer] and data analyzed using [employer]. The resting heart rate was 54 beats per minute and peak heart rate during stress was 86 beats per minute. Blood pressure was 116/73 mmHg at rest and 115/72 mm Hg at peak stress. Blood pressure response was appropriate during the stress procedure. The resting electrocardiogram demonstrated sinus bradycardia, possible old inferior GA with early repolarization ST-segment changes. During stress, no significant ST-T changes were noted. There was evidence of no significant new arrhythmias. Findings: The overall quality of the study is fair. There is evidence of moderate attenuation artifact artifact. Left ventricular cavity is noted to be normal in size on the rest images without further dilatation on post stress images. SPECT images demonstrate nonhomogeneous tracer distribution and myocardial perfusion. There is a small sized mild to moderate intensity fixed inferior defect on the upright images which appears to improve on poststress upright and supine images. No significant reversible defect is identified by visual or computer-assisted quantitative analysis Gated SPECT imaging reveals normal myocardial thickening and wall motion of all visualized segments. The left ventricular ejection fraction was calculated to be 86%, with an end-diastolic volume of 69 ml. In summary, the clinical, electrocardiographic and scintigraphic findings in this 64 years patient being evaluated for ischemia using regadenoson are as follows: Clinical response: Non-diagnostic (regadenoson). Electrocardiographic response: Non-ischemic Scintigraphic response: Non-ischemic Procedure Note Case Rizo MD - 12/14/2024 Rest/Stress One-day SPECT Myocardial Perfusion Imaging with Pharmacologic Stress Clinical Indication and History: Chest pain. Preoperative assessment, history of CAD, GA and PCI, hypertension, hyperlipidemia, former smoker. Procedure: Patient is 68 inches tall and weighs 186 lb. Rest Tc99m dose was injected 10-20 seconds after the saline flush. Myocardial perfusion imaging was performed at rest in upright position (30 minutes following the intravenous injection of 10.9 mCi of Tc99m Tetrofosmin). Pharmacologic stress testing was performed with Regadenoson 0.4 mg injected intravenously over 10 seconds. The patient reported neck pain during stress test. At peak pharmacologic effect, the patient was intravenously injected with 28.9 mCi of Tc99m Tetrofosmin. Gated post-stress tomographic imaging was performed 45 minutes after stress in upright position, followed by supine perfusion imaging. Anterior planar and gated cardiac SPECT views were obtained and data reconstructed in the short, horizontal long and vertical long axis views. All imaging was performed on [employer] and data analyzed using [employer]. The resting heart rate was 54 beats per minute and peak heart rate during stress was 86 beats per minute. Blood pressure was 116/73 mmHg at rest and 115/72 mm Hg at peak stress. Blood pressure response was appropriate during the stress procedure. The resting electrocardiogram demonstrated sinus bradycardia, possible old inferior GA with early repolarization ST-segment changes. During stress, no significant ST-T changes were noted. There was evidence of no significant new arrhythmias. Findings: The overall quality of the study is fair. There is evidence of moderate attenuation artifact artifact. Left ventricular cavity is noted to be normal in size on the rest images without further dilatation on post stress images. SPECT images demonstrate nonhomogeneous tracer distribution and myocardial perfusion. There is a small sized mild to moderate intensity fixed inferior defect on the upright images which appears to improve on poststress upright and supine images. No significant reversible defect is identified by visual or computer-assisted quantitative analysis Gated SPECT imaging reveals normal myocardial thickening and wall motion of all visualized segments. The left ventricular ejection fraction was calculated to be 86%, with an end-diastolic volume of 69 ml. In summary, the clinical, electrocardiographic and scintigraphic findings in this 64 years patient being evaluated for ischemia using regadenoson are as follows: Clinical response: Non-diagnostic (regadenoson). Electrocardiographic response: Non-ischemic Scintigraphic response: Non-ischemic Impression: 1. No evidence of significant myocardial ischemia. Small fixed inferior defect, consistent with myocardial injury.. 2. Normal left ventricular systolic function, with LVEF 86%. 3. No previous study is available for direct comparison. Case Rizo MD, [facility], [facility] Tim Aden MD CO ORDERABLES Final Result INTERFACE SYSTEM Refer to clinic/hospital department * MRI SHOULDER WO CONTRAST RIGHT (11/30/2024 9:02 AM CDT) Anatomical Region Laterality Modality Upper Extremity Magnetic Resonan ce 11/30/2024 9:02 AM CDT Impressions 11/30/2024 9:16 AM CDT IMPRESSION: Please see below. Exam: MRI SHOULDER WO CONTRAST RIGHT Date/Time of Exam: 11/30/2024 9:02 AM Reason For Exam: Shoulder pain, rotator cuff disorder suspected, xray done. Diagnosis: Chronic right shoulder pain. Technique: MRI of the right shoulder was performed without the administration of intravenous contrast. Comparison: Radiographs from 11/23/2024. Findings: The glenohumeral joint is anatomically aligned. There are mild degenerative changes. There is a small joint effusion. There is no evidence of a discrete labral tear or paralabral cyst. There is nonvisualization of a normal proximal bicipital tendon which is presumed ruptured. There is no significant tenosynovitis. There is a full-thickness tear involving the insertional fibers of the supraspinatus tendon measuring 2.0 cm in the AP dimension and affecting the entire anterior to posterior aspect of the tendon attachment. There is associated tendon retraction to the level of the glenohumeral joint measuring up to 3.9 cm. There is moderate supraspinatus, mild subscapularis and mild infraspinatus muscle atrophy. There is no significant rotator cuff muscle edema. The acromioclavicular joint is anatomically aligned. There are advanced degenerative changes. There is subacromial enthesopathy. There is fluid extending into the subacromial-subdeltoid bursa. There is no evidence of an acute osseous abnormality. IMPRESSION: 1. Retracted full-thickness tear involving the supraspinatus tendon with moderate muscle atrophy. 2. Nonvisualization of a normal proximal bicipital tendon which is presumed ruptured. 3. Mild glenohumeral joint degenerative changes with small joint effusion. 4. Advanced acromioclavicular joint degenerative changes. Narrative Procedure Note Arenas, Terrell Nuñez, DO - 11/30/2024 IMPRESSION: Please see below. Exam: MRI SHOULDER WO CONTRAST RIGHT Date/Time of Exam: 11/30/2024 9:02 AM Reason For Exam: Shoulder pain, rotator cuff disorder suspected, xray done. Diagnosis: Chronic right shoulder pain. Technique: MRI of the right shoulder was performed without the administration of intravenous contrast. Comparison: Radiographs from 11/23/2024. Findings: The glenohumeral joint is anatomically aligned. There are mild degenerative changes. There is a small joint effusion. There is no evidence of a discrete labral tear or paralabral cyst. There is nonvisualization of a normal proximal bicipital tendon which is presumed ruptured. There is no significant tenosynovitis. There is a full-thickness tear involving the insertional fibers of the supraspinatus tendon measuring 2.0 cm in the AP dimension and affecting the entire anterior to posterior aspect of the tendon attachment. There is associated tendon retraction to the level of the glenohumeral joint measuring up to 3.9 cm. There is moderate supraspinatus, mild subscapularis and mild infraspinatus muscle atrophy. There is no significant rotator cuff muscle edema. The acromioclavicular joint is anatomically aligned. There are advanced degenerative changes. There is subacromial enthesopathy. There is fluid extending into the subacromial-subdeltoid bursa. There is no evidence of an acute osseous abnormality. IMPRESSION: 1. Retracted full-thickness tear involving the supraspinatus tendon with moderate muscle atrophy. 2. Nonvisualization of a normal proximal bicipital tendon which is presumed ruptured. 3. Mild glenohumeral joint degenerative changes with small joint effusion. 4. Advanced acromioclavicular joint degenerative changes. [facility] MR ORDERABLES Final Result * XR SHOULDER 2+ VW RIGHT (11/23/2024 10:29 AM CDT) Anatomical Region Laterality Modality Upper Extremity Computed Radiogr aphy Narrative 11/24/2024 3:[address] Bryant and I personally reviewed and interpreted the shoulder right radiographs from November 23, 2024: No os acromiale. No acute dislocations or fractures noted. There is some moderate glenohumeral changes with a very small inferior humeral head osteophyte present. Severe AC joint changes with a type III acromion present. 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 A positive Cologuard result should be followed with a colonoscopy or visual examination of the colon. The normal value (reference range) for this assay is negative. TEST DESCRIPTION: Composite algorithmic analysis of stool DNA-biomarkers with hemoglobin immunoassay. Quantitative values of individual biomarkers are not reportable and are not associated with individual biomarker result reference ranges. Cologuard is intended for colorectal cancer screening of adults of either sex, 45 years or older, who are at average-risk for colorectal cancer (CRC). Cologuard has been approved for use by the [place] FDA. The performance of Cologuard was established in a cross sectional study of average-risk adults aged 50-84. Cologuard performance in patients ages 45 to 49 years was estimated by sub-group analysis of near-age groups. Colonoscopies performed for a positive result may find as the most clinically significant lesion: colorectal cancer [4.0%], advanced adenoma (including sessile serrated polyps greater than or equal to 1cm diameter) [20%] or non- advanced adenoma [31%]; or no colorectal neoplasia [45%]. These estimates are derived from a prospective cross-sectional screening study of 10,000 individuals at average risk for colorectal cancer who were screened with both Cologuard and colonoscopy. (Jeyson Carson al, N Engl J Med 2014;370(14):8731-4433.) Cologuard may produce a false negative or false positive result (no colorectal cancer or precancerous polyp present at colonoscopy follow up). A negative Cologuard test result does not guarantee the absence of CRC or advanced adenoma (pre-cancer). The current Cologuard screening interval is every 3 years. ([employer] and [place] Multi-Society Task Force). Cologuard performance data in a 10,000 patient pivotal study using colonoscopy as the reference method can be accessed at the following location: www.[employer]/results. Additional description of the Cologuard test process, warnings and precautions can be found at www.c[employer]Clique Intell[employer]cerd.com. Stool STOOL SPECIMEN / Unknown 06/24/2023 7:00 PM COOLING ROOM ATTENDANT 06/25/2023 3:25 PM COOLING ROOM ATTENDANT Dereck Lu MD BODY FLUIDS AND STOOLS Fi nal Result Performing Organization Address [facility] de Phone Number [employer] CLIA # [id number] [address], [address] [place] [address] * HEMOGLOBIN A1C (10/16/2021 3:32 AM CDT) HEMOGLOBIN A1C 5.5 <=5.6 % 10/16/2021 8:52 AM CDT [facility] [employer] [facility] EST. AVG GLUCOSE, A1C 111 mg/dL 10/16/2021 8:52 AM CDT [facility] [employer] [facility] Blood Venipuncture / Unknown 10/16/2021 3:32 AM CDT 10/16/2021 3:36 AM CDT Narrative [facility] - 10/16/2021 8:52 AM CDT HGB A1C INTERPRETATION NORMAL: <5.7% PRE-DIABETES: 5.7 - 6.4% DIABETES: 6.5% OR GREATER Bethany Giang MD CHEMISTRY ORDERABLES Final R esult Performing Organization Address [facility] Co de Phone Number [facility] [employer] [facility] CLIA # [id number] [address] [address] from Last 3 Months or Most Recently Relevant to Health Maintenance Insurance [facility] [id number] [facility] [id number] RX [employer] Member Subscriber Plan / Payer (Ef fective 2024-Present) Name:Nicholas Katzur Relation to Subscriber:Self Name:Nicholas Katz Subscriber ID:Not on file Payer ID:Not on file Group ID:[id number] Type:RX Commercial Address: [address] RX [employer] PLANS (INTERNAL) [facility] [employer] RX [employer] RX Member Subscriber Plan / Payer (Ef fective 2024-Present) Name:Nicholas Katz Relation to Subscriber:Self Name:Nicholas Katz Subscriber ID:Not on file Payer ID:Not on file Group ID:[id number] Type:RX Commercial Address: [address] [place] [facility] [id number] Advance Directives For more information, please contact: [phone] * Full Code (Latest Code Status on File) Date Activated Date Inactivated Comments 10/16/2021 2:18 AM 10/18/2021 4:43 PM Care Teams Oracle Specialist Relationship Specialty Start Date End Date Dereck Lu MD [address] [place] [id number] PCP - General Family Practice 06/02/23
== END 2025-01-02 03:26 | disposition home or self-care (01) ==
PROVIDERS: Emergency Provider Emergency Medicine
DX: R07.9 Chest pain, unspecified (principal)
CPT/HCPCS: 36415; 71045; 71275; 80053; 83880; 84484; 85025; 85378; 93005; 96374; 96375; 99285; J2270; J2405; J9999

== ENCOUNTER 2025-03-08 10:00 | Outpatient (RCR) | payer MEDICARE, SELFPAY | END 2025-03-24 23:59 | disposition home or self-care (01) | LOC: SPT 10:00 | PROVIDERS: Visit Provider Nurse Practitioner Family | DX: Z47.89 Encounter for other orthopedic aftercare (principal) | CPT/HCPCS: 97110; 97140; 97161 ==

== ENCOUNTER 2025-03-25 05:00 | Outpatient (RCR) | payer MEDICARE, SELFPAY | END 2025-04-23 23:59 | disposition home or self-care (01) | LOC: SPT 05:00 | PROVIDERS: Visit Provider Nurse Practitioner Family | DX: Z47.1 Aftercare following joint replacement surgery (principal); Z96.611 Presence of right artificial shoulder joint | CPT/HCPCS: 97110; 97140 ==

== ENCOUNTER 2025-04-24 05:00 | Outpatient (RCR) | payer MEDICARE, SELFPAY | END 2025-05-24 23:59 | disposition home or self-care (01) | LOC: SPT 05:00 | PROVIDERS: Visit Provider Nurse Practitioner Family | DX: Z47.1 Aftercare following joint replacement surgery (principal); Z96.611 Presence of right artificial shoulder joint | CPT/HCPCS: 97110; 97164 ==